=== PATIENT | male | born 1955 | race Caucasian/White ===

== ENCOUNTER 2018-03-27 19:28 | Inpatient (IN) | payer BC ==
[~2018-03-27] VITALS: Ht 172.7 cm; Wt 102.0 kg
[~2018-03-27 19:28] MED LIST: ALBU1AER9 INH; ASPI-320 PO; BIOTCAP2 PO; CHOL100010 PO; CLOP1TAB5 PO; CYAN500T PO; FLNIN/ NAE; GLUCTAB7 PO; LSN5 PO; LUTE6TAB PO; METO-452 PO; NTRSLP4 SL; OMEG10007 PO; VITATAB19 PO
[2018-03-27] MEDS ORDERED: SODIUM CHLORIDE 0.9% 1000ML 500 ML IV STA (19:44)
[2018-03-27] MEDS ORDERED: KETOROLAC TROMETHAMINE 30 MG/ML VIAL IV STA (19:44)
[2018-03-27] MEDS ORDERED: ONDANSETRON INJ 2 MG/ML 2 ML VIAL IV STA ×2 (19:44→21:15)
[2018-03-27] MEDS: MoRPHine SULFATE 4 MG/ML 1 ML CARP\\VIAL IV PRN ×3 (19:50→21:13)
[2018-03-27 19:55] LABS: BASO % 0.9 %; BASO ABS # 0.07 K/uL (0-0.2); EOS % 3.9 %; EOS ABS # 0.31 K/uL (0-0.5); HEMATOCRIT 42.8 % (42-52); HEMOGLOBIN 15.4 g/dL (14.0-18.0); IG# 0.02 K/uL (0.00-0.02); LYMPH % 34.9 %; LYMPH ABS # 2.81 K/uL (1.2-3.4); MEAN CELL VOLUME 83.4 fL (80-100); MEAN PLATELET VOLUME 10.1 fL (7.4-10.4); MONO % 7.7 %; MONO ABS # 0.62 K/uL (0.11-0.59); NEUT % 52.4 %; NEUT ABS # 4.22 K/uL (1.4-6.5); PLATELET COUNT 177 K/uL (130-400); RED CELL DISTRIBUTION WIDTH CV 13.3 % (11.5-14.5); RED CELL DISTRIBUTION WIDTH SD 40.3 fL (36.4-46.3); WHITE BLOOD COUNT 8.05 K/uL (4.8-10.8)
[2018-03-27] MEDS ORDERED: MoRPHine SULFATE 4 MG/ML 1 ML CARP\\VIAL IV STA (20:05)
--- NOTE | 2018-03-27 20:17 | DIAGNOSTIC IMAGING REPORT ---
CHEST ONE VIEW PORTABLE CLINICAL HISTORY: 63 years-old Male presenting with ABDOMINAL PAIN/GI. TECHNIQUE: Portable upright AP view of the chest was obtained. COMPARISON: 12/12/2015. FINDINGS: Cardiomediastinal silhouette normal. Mildly low lung volumes with hypoventilatory changes. No focal opacity. No large effusion or pneumothorax. Degenerative changes of the left glenohumeral joint. Chronic acromioclavicular separation on the left. Upper abdomen normal. IMPRESSION: 1. No acute cardiopulmonary disease. Electronically signed by: Julio Cesar Head M.D. 03/27/2018 8:15 PM Dictated Date/Time: 03/27/2018 8:15 PM
[2018-03-27 20:29] LABS: ALBUMIN 3.5 gm/dl (3.4-5.0); ALT/SGPT 29 U/L (12-78); AST/SGOT 13 U/L (15-37); BLOOD UREA NITROGEN 19 mg/dl (7-18); CALCIUM 9.1 mg/dl (8.5-10.1); CARBON DIOXIDE 24 mmol/L (21-32); CREATININE 0.99 mg/dl (0.60-1.40); GLUCOSE 167 mg/dl (70-99); LIPASE 223 U/L (73-393); POTASSIUM 3.4 mmol/L (3.5-5.1); SODIUM 135 mmol/L (136-145)
[2018-03-27 20:34] LABS: ALKALINE PHOSPHATASE 77 U/L (45-117)
[2018-03-27] MEDS ORDERED: TPRSR/50 PO (20:37)
[2018-03-27] MEDS ORDERED: ASPI81TA28 PO (20:37)
[2018-03-27] MEDS ORDERED: PROAIR INH (20:37)
[2018-03-27] MEDS ORDERED: CHOL20009 PO (20:37)
[2018-03-27] MEDS ORDERED: EZET10TA66 PO (20:37)
[2018-03-27] MEDS ORDERED: LISI-729 PO (20:37)
[2018-03-27] MEDS ORDERED: NTRGSL/4 UT (20:38)
--- NOTE | 2018-03-27 21:01 | DIAGNOSTIC IMAGING REPORT ---
GALLBLADDER-ABD LIMITED CLINICAL HISTORY: 63 years-old Male presenting with ABDOMINAL PAIN/GI. TECHNIQUE: Real-time grayscale and limited color Doppler ultrasound imaging of the abdomen limited to the right upper quadrant was performed. COMPARISON: CT from 2010. FINDINGS: Pancreas: Largely obscured due to overlying bowel gas. Liver: Mildly hyperechogenic parenchyma, although the right hemidiaphragm remains visible, likely indicating mild steatosis. The liver measures 15.7 cm in maximal sagittal dimension. No sonographic evidence of hepatic mass. Main portal vein patent with normal directional flow. Biliary: No intrahepatic biliary ductal dilatation. Common bile duct measures up to 5 mm in diameter. Gallbladder: Gallstones in the gallbladder neck without evidence of gallbladder distention, wall thickening, or pericholecystic fluid or inflammatory change. Right kidney: Normal in appearance without evidence of hydronephrosis. Ascites: None. Other: None. IMPRESSION: 1. Cholelithiasis. No biliary ductal dilatation or evidence of cholecystitis. 2. Hepatic steatosis. Correlate with liver function tests to exclude steatohepatitis as a cause for abdominal pain. Electronically signed by: Julio Cesar Head M.D. 03/27/2018 9:00 PM Dictated Date/Time: 03/27/2018 8:58 PM
--- NOTE | 2018-03-27 21:20 | EMERGENCY ROOM VISIT NOTE ---
History Report prepared by Donnie: Junior Logan Under the Supervision of: Dr. Denny Grubbs M.D. First contact with patient: 19:43 Chief Complaint: ABDOMINAL PAIN Stated Complaint: SEVERE ABDOMINAL PAIN, NAUSEA History of Present Illness The patient is a 63 year old male who presents to the Emergency Room with complaints of constant RUQ abdominal pain beginning just 3 hours and 45 minutes ago. He currently rates his discomfort a 10/10 in severity. The patient states he is trying to lose weight and has been drinking protein shakes for meals. He reports he developed his abdominal pain, and he thought he needed to eat something. The patient notes he ate crackers, half of a hoagie, and potato chips. He states this made his symptoms worsen, and he developed nausea. The patient reports he forced himself to vomit, and it did not help his symptoms. He notes his discomfort stays in the right upper side of his abdomen; it does not radiate. The patient states his position does not affect his symptom intensity. He reports he still has his gallbladder. The patient denies having this pain before, burning with urination, fevers, and a history of abdominal surgeries. Source of History: patient Onset: 3hrs and 45mins Position: abdomen (RUQ) Symptom Intensity: 10/10 Timing: constant Modifying Factors (Worsening): eating Associated Symptoms: + nausea, + vomiting (self-induced), No fevers Note: Denies: burning with urination Review of Systems See HPI for pertinent positives & negatives. A total of 10 systems reviewed and were otherwise negative. Past Medical & Surgical Medical Problems: (1) Asthma (2) Hypertension Nos (3) Osteoarthritis (4) Status post non-ST elevation myocardial infarction (NSTEMI) (5) Symptomatic cholelithiasis Surgical Problems: (1) Cataract Nos (2) S/P ORIF left leg (3) S/P angioplasty with stent (4) S/P sinus surgery (5) S/P wrist surgery Family History Heart disease MOTHER (CABG in 60s ) BROTHER (CABG in 60s ) Hypertension MOTHER BROTHER Social History Smoking Status: Never Smoker Drug Use: none Marital Status: Housing Status: lives with significant other Occupation Status: employed Current/Historical Medications Scheduled Aspirin (Aspirin Ec), 81 MG PO ON HOLD Cholecalciferol (Vitamin D), 2,000 UNITS PO DAILY Ezetimibe (Ezetimibe), 10 MG PO DAILY Lisinopril (Zestril), 5 MG PO DAILY Lutein-Zeaxanthin (Lutein W/Zeaxanthin), 1 TAB PO DAILY Metoprolol Succinate (Metoprolol Succinate ER), 50 MG PO DAILY Nitroglycerin (Nitrostat), 0.4 MG UT PRN [Proair Hfa 108MCG], 1 PUFF INH PRN Allergies Coded Allergies: No Known Allergies (Unverified , 12/12/15) Physical Exam Vital Signs Date Time Temp Pulse Resp B/P (MAP) Pulse Ox O2 Delivery O2 Flow Rate FiO2 03/27/18 21:15 66 20 142/68 97 Room Air 03/27/18 19:33 36.4 79 18 154/73 97 Room Air Physical Exam GENERAL: Patient is in moderate acute distress secondary to pain. HEENT: No acute trauma, normocephalic atraumatic, mucous membranes moist, no nasal congestion, no scleral icterus. NECK: No stridor, no adenopathy, no meningismus, trachea is midline. LUNGS: Clear to auscultation bilaterally, no wheeze, no rhonchi, breath sounds equal. HEART: Without murmurs gallops or rubs, regular rate and rhythm. ABDOMEN: Soft, significant tenderness in the RUQ and epigastrium, bowel sounds positive, no hernias, no peritonitis. EXTREMITIES: No cyanosis or edema, boot on the left lower extremity, no signs for acute trauma. NEUROLOGIC: Oriented x 3, no acute motor or sensory deficits, no focal weakness. SKIN: No rash, no jaundice, no diaphoresis. Medical Decision & Procedures ER Provider Diagnostic Interpretation: Radiology results as stated below per my review and radiologist interpretation: GALLBLADDER-ABD LIMITED CLINICAL HISTORY: 63 years-old Male presenting with ABDOMINAL PAIN/GI. TECHNIQUE: Real-time grayscale and limited color Doppler ultrasound imaging of the abdomen limited to the right upper quadrant was performed. COMPARISON: CT from 2010. FINDINGS: Pancreas: Largely obscured due to overlying bowel gas. Liver: Mildly hyperechogenic parenchyma, although the right hemidiaphragm remains visible, likely indicating mild steatosis. The liver measures 15.7 cm in maximal sagittal dimension. No sonographic evidence of hepatic mass. Main portal vein patent with normal directional flow. Biliary: No intrahepatic biliary ductal dilatation. Common bile duct measures up to 5 mm in diameter. Gallbladder: Gallstones in the gallbladder neck without evidence of gallbladder distention, wall thickening, or pericholecystic fluid or inflammatory change. Right kidney: Normal in appearance without evidence of hydronephrosis. Ascites: None. Other: None. IMPRESSION: 1. Cholelithiasis. No biliary ductal dilatation or evidence of cholecystitis. 2. Hepatic steatosis. Correlate with liver function tests to exclude steatohepatitis as a cause for abdominal pain. Electronically signed by: Julio Cesar Head M.D. 03/27/2018 9:00 PM Dictated Date/Time: 03/27/2018 8:58 PM CHEST ONE VIEW PORTABLE CLINICAL HISTORY: 63 years-old Male presenting with ABDOMINAL PAIN/GI. TECHNIQUE: Portable upright AP view of the chest was obtained. COMPARISON: 12/12/2015. FINDINGS: Cardiomediastinal silhouette normal. Mildly low lung volumes with hypoventilatory changes. No focal opacity. No large effusion or pneumothorax. Degenerative changes of the left glenohumeral joint. Chronic acromioclavicular separation on the left. Upper abdomen normal. IMPRESSION: 1. No acute cardiopulmonary disease. Electronically signed by: Julio Cesar Head M.D. 03/27/2018 8:15 PM Dictated Date/Time: 03/27/2018 8:15 PM Laboratory Results 03/27/18 19:40 Red Blood Count 5.13, Mean Corpuscular Volume 83.4, Mean Corpuscular Hemoglobin 30.0, Mean Corpuscular Hemoglobin Concent 36.0, Mean Platelet Volume 10.1, Neutrophils (%) (Auto) 52.4, Lymphocytes (%) (Auto) 34.9, Monocytes (%) (Auto) 7.7, Eosinophils (%) (Auto) 3.9, Basophils (%) (Auto) 0.9, Neutrophils # (Auto) 4.22, Lymphocytes # (Auto) 2.81, Monocytes # (Auto) 0.62, Eosinophils # (Auto) 0.31, Basophils # (Auto) 0.07 03/27/18 19:40 Test 03/27/18 19:40 White Blood Count 8.05 K/uL (4.8-10.8) Red Blood Count 5.13 M/uL (4.7-6.1) Hemoglobin 15.4 g/dL (14.0-18.0) Hematocrit 42.8 % (42-52) Mean Corpuscular Volume 83.4 fL (80-100) Mean Corpuscular Hemoglobin 30.0 pg (25-34) Mean Corpuscular Hemoglobin Concent 36.0 g/dl (32-36) Platelet Count 177 K/uL (130-400) Mean Platelet Volume 10.1 fL (7.4-10.4) Neutrophils (%) (Auto) 52.4 % Lymphocytes (%) (Auto) 34.9 % Monocytes (%) (Auto) 7.7 % Eosinophils (%) (Auto) 3.9 % Basophils (%) (Auto) 0.9 % Neutrophils # (Auto) 4.22 K/uL (1.4-6.5) Lymphocytes # (Auto) 2.81 K/uL (1.2-3.4) Monocytes # (Auto) 0.62 K/uL (0.11-0.59) Eosinophils # (Auto) 0.31 K/uL (0-0.5) Basophils # (Auto) 0.07 K/uL (0-0.2) RDW Standard Deviation 40.3 fL (36.4-46.3) RDW Coefficient of Variation 13.3 % (11.5-14.5) Immature Granulocyte % (Auto) 0.2 % Immature Granulocyte # (Auto) 0.02 K/uL (0.00-0.02) Anion Gap 8.0 mmol/L (3-11) Est Creatinine Clear Calc Drug Dose 86.6 ml/min Estimated GFR () 92.9 Estimated GFR (Non- 80.2 BUN/Creatinine Ratio 19.5 (10-20) Calcium Level 9.1 mg/dl (8.5-10.1) Total Bilirubin 0.5 mg/dl (0.2-1) Aspartate Amino Transf (AST/SGOT) 13 U/L (15-37) Alanine Aminotransferase (ALT/SGPT) 29 U/L (12-78) Alkaline Phosphatase 77 U/L (45-117) Troponin I < 0.015 ng/ml (0-0.045) Total Protein 7.0 gm/dl (6.4-8.2) Albumin 3.5 gm/dl (3.4-5.0) Globulin 3.5 gm/dl (2.5-4.0) Albumin/Globulin Ratio 1.0 (0.9-2) Lipase 223 U/L (73-393) Laboratory results reviewed by me. Medications Administered Medications (Trade) Dose Ordered Sig/Adela Route Start Time Stop Time Status Last Admin Dose Admin Sodium Chloride 500 ml @ 999 mls/hr Q31M STAT IV 03/27/18 19:44 03/27/18 20:14 DC 03/27/18 19:44 999 MLS/HR Ondansetron HCl (Zofran Inj) 4 mg NOW STAT IV 03/27/18 19:44 03/27/18 19:47 DC 03/27/18 19:49 4 MG Morphine Sulfate (MoRPHine SULFATE INJ) 4 mg Q30M PRN IV 03/27/18 19:45 04/10/18 19:44 03/27/18 21:13 4 MG Ketorolac Tromethamine (Toradol Inj) 30 mg NOW STAT IV 03/27/18 19:44 03/27/18 19:47 DC 03/27/18 19:54 30 MG Ondansetron HCl (Zofran Inj) 4 mg NOW STAT IV 03/27/18 21:15 03/27/18 21:16 DC 03/27/18 21:17 4 MG ECG Per My Interpretation Indication: abdominal pain Rate (beats per minute): 62 Rhythm: normal sinus Findings: T-wave inversion (Inferior), no ectopy, other (No ST elevation. No PVCs.) Comparison ECG Date: 12/14/17 Change: no significant change ED Course 1940: The patient was evaluated in room C03. A complete history and physical exam was performed. 1943: Ordered Toradol 30mg IV, Zofran 4mg IV, Sodium Chloride 500 ml @ 999 mls/ hr IV 1944: Ordered Morphine Sulfate 4mg IV 2004: The nurse called, and the patient is requesting more pain medication. I will give him an additional 4mg or Morphine. 2105: I attempted to reevaluate the patient. He is still at his ultrasound. 2110: Upon reexamination the patient is resting. I discussed results and treatment plan with the patient. He verbalizes agreement and understanding. The patient will be evaluated for further management. 2114: Ordered Zofran 4mg IV 2116: I discussed the patient's case with Shubham Saucedo PA-C, General Surgery. The patient will be evaluated for further management and care. Medical Decision The patient is a 63 year old male who presents to the ED with complaints of constant RUQ abdominal pain. Differential diagnoses considered include renal colic, biliary colic, UTI, pancreatitis, UTI, bowel rupture, ulcer, appendicitis , diverticulitis, cholecystitis. There is no leukocytosis or concerning anemia. No significant electrolyte abnormality, kidney failure, hepatitis or pancreatitis. Chest film does not show pneumonia, free air or pneumothorax. Gallbladder ultrasound does show gallstones, no evidence for acute cholecystitis. EKG shows a normal sinus rhythm without any acute ischemic change. Cardiac enzyme testing 1 is not consistent with acute cardiac injury. Patient received IV saline, he received IV morphine, IV Toradol, IV Zofran. He received additional IV morphine and IV Zofran for symptom control. 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 I talked with the on-call surgeons who saw the patient here. The patient will be hospitalized. I did speak with case management. The patient is aware of all his findings. I do think his symptoms are from biliary colic. Medication Reconcilliation Current Medication List: was personally reviewed by me Blood Pressure Screening Patient's blood pressure: Elevated blood pressure Blood pressure disposition: Elevated BP felt to be situational Consults Time Called: 2113 Consulting Physician: Shubham Saucedo PA-C, General Surgery Returned Call: 2116 I discussed the patient's case with Shubham Saucedo PA-C, General Surgery. The patient will be evaluated for further management and care. Impression Primary Impression: RUQ abdominal pain Additional Impression: Biliary colic Scribe Attestation The scribe's documentation has been prepared under my direction and personally reviewed by me in its entirety. I confirm that the note above accurately reflects all work, treatment, procedures, and medical decision making performed by me. Departure Information Dispostion Being Evaluated By Surgeon Referrals Alicia Banerjee DO (PCP) Patient Instructions My [facility] Problem Qualifiers
--- NOTE | 2018-03-27 22:09 | Surgery Consultation ---
Consultation Date of Consultation: March 27, 2018. Attending Physician: Reason for Consultation: cholelithiasis History of Present Illness Patient is a 63M w/ PMHx [place] w/ angioplasty and stent x4 who presents to the ED this evening with right sided abdominal pain beginning around 1600 today. Reports he had a protein shake and some cheese and his pain came on afterwards along with some nausea. He forced himself to vomit once to try and relieve the pain but it didnt help. denies hematemesis. Denies any symptoms like this in the past. Denies fever/chills/recent illness. he is moving his bowels and urinating without issue. FHx positive for gallbladder disease (mother, sister). Denies use of blood thinning or anticoagulant medications. Denies previous history of abdominal surgeries. He is currently a few months out from an ankle replacement he had done in December 2017, no complications. He does follow with dr. nickerson with [facility] for his cardiac history, last seen in August 2017. Currently he still has a dull ache in his right side despite analgesics in the ED. WBC and LFT wnl. RUQ U/S shows cholelithiasis with a stone at the gallbladder neck, no evidence of acute cholecystitis. Past Medical/Surgical History Medical Problems: (1) Acute coronary syndrome Status: Acute (2) Biliary colic Status: Acute (3) Chest pain Status: Acute (4) RUQ abdominal pain Status: Acute Family History Heart disease MOTHER (CABG in 60s ) BROTHER (CABG in 60s ) Hypertension MOTHER BROTHER Social History Smoking Status: Never Smoker Drug Use: none Marital Status: Housing Status: lives with significant other Occupation Status: employed Allergies Coded Allergies: No Known Allergies (Unverified , 12/12/15) Home Medications Scheduled Aspirin (Aspirin Ec), 81 MG PO ON HOLD Cholecalciferol (Vitamin D), 2,000 UNITS PO DAILY Ezetimibe (Ezetimibe), 10 MG PO DAILY Lisinopril (Zestril), 5 MG PO DAILY Lutein-Zeaxanthin (Lutein W/Zeaxanthin), 1 TAB PO DAILY Metoprolol Succinate (Metoprolol Succinate ER), 50 MG PO DAILY Nitroglycerin (Nitrostat), 0.4 MG UT PRN [Proair Hfa 108MCG], 1 PUFF INH PRN Current Inpatient Medications Current Inpatient Medications Medications (Trade) Dose Ordered Sig/Adela Route Start Time Stop Time Status Last Admin Dose Admin Morphine Sulfate (MoRPHine SULFATE INJ) 4 mg Q30M PRN IV 03/27/18 19:45 04/10/18 19:44 03/27/18 21:13 4 MG Review of Systems Constitutional: No fever, No chills Respiratory: No shortness of breath Cardiovascular: No chest pain Abdomen: + pain (RUQ), + nausea, + vomiting, No diarrhea, No constipation Genitourinary - Male: No dysuria Integumentary: No new/changing skin lesions, No color change Physical Exam Date Time Temp Pulse Resp B/P (MAP) Pulse Ox O2 Delivery O2 Flow Rate FiO2 03/27/18 21:15 66 20 142/68 97 Room Air 03/27/18 19:33 36.4 79 18 154/73 97 Room Air General Appearance: WD/WN, no apparent distress Head: normocephalic, atraumatic ENT: hearing grossly normal Respiratory/Chest: lungs clear, no respiratory distress, no accessory muscle use Cardiovascular: regular rate, rhythm, no gallop, no murmur Abdomen/GI: soft, no organomegaly, no pulsatile mass, + tenderness (Right abdominal tenderness, RUQ) Neurologic/Psych: alert, normal mood/affect, oriented x 3 Skin: normal color, warm/dry Laboratory Results Last 24 Hours Test 03/27/18 19:40 White Blood Count 8.05 K/uL Red Blood Count 5.13 M/uL Hemoglobin 15.4 g/dL Hematocrit 42.8 % Mean Corpuscular Volume 83.4 fL Mean Corpuscular Hemoglobin 30.0 pg Mean Corpuscular Hemoglobin Concent 36.0 g/dl Platelet Count 177 K/uL Mean Platelet Volume 10.1 fL Neutrophils (%) (Auto) 52.4 % Lymphocytes (%) (Auto) 34.9 % Monocytes (%) (Auto) 7.7 % Eosinophils (%) (Auto) 3.9 % Basophils (%) (Auto) 0.9 % Neutrophils # (Auto) 4.22 K/uL Lymphocytes # (Auto) 2.81 K/uL Monocytes # (Auto) 0.62 K/uL Eosinophils # (Auto) 0.31 K/uL Basophils # (Auto) 0.07 K/uL RDW Standard Deviation 40.3 fL RDW Coefficient of Variation 13.3 % Immature Granulocyte % (Auto) 0.2 % Immature Granulocyte # (Auto) 0.02 K/uL Sodium Level 135 mmol/L Potassium Level 3.4 mmol/L Chloride Level 103 mmol/L Carbon Dioxide Level 24 mmol/L Anion Gap 8.0 mmol/L Blood Urea Nitrogen 19 mg/dl Creatinine 0.99 mg/dl Est Creatinine Clear Calc Drug Dose 86.6 ml/min Estimated GFR () 92.9 Estimated GFR (Non- 80.2 BUN/Creatinine Ratio 19.5 Random Glucose 167 mg/dl Calcium Level 9.1 mg/dl Total Bilirubin 0.5 mg/dl Aspartate Amino Transf (AST/SGOT) 13 U/L Alanine Aminotransferase (ALT/SGPT) 29 U/L Alkaline Phosphatase 77 U/L Troponin I < 0.015 ng/ml Total Protein 7.0 gm/dl Albumin 3.5 gm/dl Globulin 3.5 gm/dl Albumin/Globulin Ratio 1.0 Lipase 223 U/L Assessment & Plan Symptomatic cholelithiasis Abdomen soft, non-distended. Still some mild right sided tenderness despite IV analgesics. Plan for laparoscopic cholecystectomy, possible open with Dr. Meza in the OR tomorrow. Risks, benefits, alternatives to the procedure were discussed - questions answered. Admit med/surg, NPO after midnight, IV fluids, IV mefoxin 2g Q6H, pain medication prn, anti-emetics PRN, SCDs. Will consult medicine for pre-op risk assessment given cardiac history. Or Notified. Findings discussed with Dr. Meza. Please contact with questions or concerns.
[2018-03-27] MEDS ORDERED: SODIUM CHLORIDE 0.9% 1000ML 1,000 ML IV SCH (22:15)
[2018-03-27] MEDS ORDERED: ONDANSETRON INJ 2 MG/ML 2 ML VIAL IV PRN (22:15)
[2018-03-27] MEDS ORDERED: HYDROmorphone INJ 2 MG/ML SYR/VIAL IV PRN (22:15)
[2018-03-27] MEDS ORDERED: HYDROmorphone INJ 0.5 MG/0.5 ML SYR IV PRN (22:15)
[2018-03-27] MEDS ORDERED: PROMETHAZINE HCL INJ 25 MG in SODIUM CHLORIDE 0.9% 50ML 50 ML IV PRN (22:30)
[2018-03-27] MEDS ORDERED: POTASSIUM CHLORIDE 10 MEQ TABCR PO STA (22:59)
[2018-03-27 23:26] VITALS: BP 128/87; PULSE 91; TEMP 36.4; O2SAT 95
[2018-03-27 23:30] VITALS: BP 128/87; PULSE 91; TEMP 36.4; Ht 172.7 cm; Wt 102.0 kg
[2018-03-27] MEDS ORDERED: PROMETHAZINE HCL INJ 12.5 MG in SODIUM CHLORIDE 0.9% 50ML 50 ML IV PRN (23:45)
[2018-03-28] VITALS (10 sets, daily range): BP systolic 120–164; BP diastolic 68–86; PULSE 66–80; TEMP 36.4–37; O2SAT 93–98
[2018-03-28] MEDS: NSS + 20MEQ KCL 1000ML 1,000 ML IV SCH ×2 (00:19→15:38)
[2018-03-28] MEDS: ACETAMINOPHEN IV 1,000 MG in EMPTY BAG 0 ML IV SCH ×4 (00:19→23:30)
[2018-03-28] MEDS: CEFOXITIN IV 2,000 MG in DEXTROSE 5% 50ML 50 ML IV SCH ×5 (00:33→23:29)
--- NOTE | 2018-03-28 06:17 | Surgery Progress Note ---
Surgery Progress Note Date of Service March 28, 2018. Subjective vs stable Objective Vital Signs: Date Time Temp Pulse Resp B/P (MAP) Pulse Ox O2 Delivery O2 Flow Rate FiO2 03/27/18 23:30 Room Air 03/27/18 23:30 36.4 91 17 128/87 Room Air 03/27/18 23:26 36.4 91 17 128/87 (101) 95 Room Air 03/27/18 22:48 65 20 142/65 93 Room Air 03/27/18 21:15 66 20 142/68 97 Room Air 03/27/18 19:33 36.4 79 18 154/73 97 Room Air General Appearance: no apparent distress Respiratory/Chest: no respiratory distress Abdomen: soft Laboratory Results: Results Past 24 Hours Test 03/27/18 19:40 03/28/18 02:30 Range/Units White Blood Count 8.05 4.8-10.8 K/uL Red Blood Count 5.13 4.7-6.1 M/uL Hemoglobin 15.4 14.0-18.0 g/dL Hematocrit 42.8 42-52 % Mean Corpuscular Volume 83.4 80-100 fL Mean Corpuscular Hemoglobin 30.0 25-34 pg Mean Corpuscular Hemoglobin Concent 36.0 32-36 g/dl Platelet Count 177 130-400 K/uL Mean Platelet Volume 10.1 7.4-10.4 fL Neutrophils (%) (Auto) 52.4 % Lymphocytes (%) (Auto) 34.9 % Monocytes (%) (Auto) 7.7 % Eosinophils (%) (Auto) 3.9 % Basophils (%) (Auto) 0.9 % Neutrophils # (Auto) 4.22 1.4-6.5 K/uL Lymphocytes # (Auto) 2.81 1.2-3.4 K/uL Monocytes # (Auto) 0.62 0.11-0.59 K/uL Eosinophils # (Auto) 0.31 0-0.5 K/uL Basophils # (Auto) 0.07 0-0.2 K/uL RDW Standard Deviation 40.3 36.4-46.3 fL RDW Coefficient of Variation 13.3 11.5-14.5 % Immature Granulocyte % (Auto) 0.2 % Immature Granulocyte # (Auto) 0.02 0.00-0.02 K/uL Sodium Level 135 136-145 mmol/L Potassium Level 3.4 3.5-5.1 mmol/L Chloride Level 103 98-107 mmol/L Carbon Dioxide Level 24 21-32 mmol/L Anion Gap 8.0 3-11 mmol/L Blood Urea Nitrogen 19 7-18 mg/dl Creatinine 0.99 0.60-1.40 mg/dl Est Creatinine Clear Calc Drug Dose 86.6 ml/min Estimated GFR () 92.9 Estimated GFR (Non- 80.2 BUN/Creatinine Ratio 19.5 10-20 Random Glucose 167 70-99 mg/dl Calcium Level 9.1 8.5-10.1 mg/dl Magnesium Level 1.9 1.8-2.4 mg/dl Total Bilirubin 0.5 0.2-1 mg/dl Aspartate Amino Transf (AST/SGOT) 13 15-37 U/L Alanine Aminotransferase (ALT/SGPT) 29 12-78 U/L Alkaline Phosphatase 77 45-117 U/L Troponin I < 0.015 0-0.045 ng/ml Total Protein 7.0 6.4-8.2 gm/dl Albumin 3.5 3.4-5.0 gm/dl Globulin 3.5 2.5-4.0 gm/dl Albumin/Globulin Ratio 1.0 0.9-2 Lipase 223 73-393 U/L Urine Color YELLOW Urine Appearance CLEAR CLEAR Urine pH 5.0 4.5-7.5 Urine Specific Spencer 1.029 1.000-1.030 Urine Protein NEG NEG Urine Glucose (UA) NEG NEG Urine Ketones NEG NEG Urine Occult Blood NEG NEG Urine Nitrite NEG NEG Urine Bilirubin NEG NEG Urine Urobilinogen NEG NEG Urine Leukocyte Esterase NEG NEG Assessment & Plan 03/28/18- for jada omero today- probable d/c tomorrow Dr Majano covering over weekend
[2018-03-28] MEDS ORDERED: HYDR-5688 PO ×2 (06:18→06:24)
--- NOTE | 2018-03-28 06:20 | Discharge Instructions ---
Discharge Instructions Date of Service March 28, 2018. Admission Reason for Admission: Symptomatic Cholelithiasis Discharge Discharge Diagnosis / Problem: acute cholecystitis Discharge Goals Goal(s): Decrease discomfort, Improve function, Improve disease control Activity Recommendations Activity Limitations: as noted below Lifting Limitations: no more than 25 pounds (for 3 weeks) Exercise/Sports Limitations: until after follow-up appointment May Resume Sexual Activity: when tolerated Shower/Bathe: tomorrow Driving or Machine Use: resume 3 days after discharge . Instructions / Follow-Up Instructions / Follow-Up SPECIAL CARE INSTRUCTIONS: * Cover incisions and change daily for comfort/drainage. * Empty drain 2-3 times per day and record. * May use ibuprofen for pain as tolerated. * Expect some swelling and bruising. Call your doctor if: * Temperature above 101 degrees * Pain not relieved by pain medicine ordered * There is increased drainage or redness from any incision * You have any unanswered questions or concerns [phone]. FOLLOW UP VISIT: If not already scheduled, please call the office for a follow-up visit. for next Sat- suture removal OFFICE PHONE NUMBER: Dr. Meza Office Current Hospital Diet Patient's current hospital diet: Clear Liquid Diet Discharge Diet Recommended Diet: Regular Diet Pending Studies Studies pending at discharge: no Laboratory Results Hemoglobin A1c Test 03/27/18 19:40 Range/Units Medical Emergencies . Who to Call and When: Medical Emergencies: If at any time you feel your situation is an emergency, please call 911 immediately. . Non-Emergent Contact Non-Emergency issues call your: Primary Care Provider, Surgeon . "Provider Documentation" section prepared by Kit Meza. .
[2018-03-28 06:28] LABS: HEMOGLOBIN A1C 5.3 % (4.5-5.6)
[2018-03-28] MEDS ORDERED: DEXAMETHASONE SOD INJ 4 MG/ML VIAL ONE (06:50)
[2018-03-28] MEDS ORDERED: PROPOFOL IV EMULSION 10 MG/ML 20 ML VIAL ONE (06:50)
[2018-03-28] MEDS ORDERED: ROCURONIUM BROMIDE 10 MG/ML 5 ML VIAL ONE (06:50)
[2018-03-28] MEDS ORDERED: GLYCOPYRROLATE INJ 0.2 MG/ML VIAL ONE (06:50)
[2018-03-28] MEDS ORDERED: NEOSTIGMINE METHYLSULFATE 5 MG/5 ML SYR ONE (06:50)
[2018-03-28] MEDS ORDERED: ONDANSETRON INJ 2 MG/ML 2 ML VIAL ONE (06:50)
[2018-03-28] MEDS ORDERED: LIDOCAINE HCL 2% 2 ML VIAL (20MG/ML) ONE (06:50)
[2018-03-28] MEDS ORDERED: FENTANYL CITRATE INJ 50 MCG/1 ML 2 ML VIAL ONE (06:51)
[2018-03-28] MEDS ORDERED: MIDAZOLAM HCL 1 MG/ML 2ML VIAL ONE (06:51)
[2018-03-28] MEDS ORDERED: BUPIVACAINE 0.5 % 5 MG/1 ML MPF 30ML VIAL ONE (07:11)
[2018-03-28] MEDS ORDERED: ONDANSETRON INJ 2 MG/ML 2 ML VIAL IV PRN (07:15)
[2018-03-28] MEDS ORDERED: FENTANYL CITRATE INJ 50 MCG/1 ML 2 ML VIAL IV PRN (07:15)
[2018-03-28] MEDS ORDERED: EpHEDrine SULFATE INJ 50 MG/ML AMP IV PRN (07:15)
[2018-03-28] MEDS ORDERED: ATROPINE SULFATE 0.1 MG/ML 5ML SYR IV PRN (07:15)
[2018-03-28] MEDS ORDERED: EpHEDrine SULFATE INJ 50 MG/ML AMP ONE (07:55)
--- NOTE | 2018-03-28 08:39 | [facility] Operative Report ---
Operative Report Operative Date March 28, 2018. Pre-Operative Diagnosis Cholelithiasis acute cholecystitis Post-Operative Diagnosis same with chronic cholecystitis, adhesions Procedure(s) Performed lap omero Surgeon Dr. Meza Music Sound Light Technician Surgeon(s) Damir Ro PA-C Estimated Blood Loss 20cc Findings single stone in neck, chronic adhesions from chronic cholecystitis Specimens A) Gallbladder Drains None Anesthesia Type General Complication(s) none Disposition Recovery Room / PACU I attest to the content of the Intraoperative Record and any orders documented therein. Any exceptions are noted below.
[2018-03-28] MEDS ORDERED: ESMOLOL HCL 10 MG/ML 10 ML VIAL ONE (08:49)
[2018-03-28] MEDS ORDERED: HYDROCODONE/ACETAMIN 5/325MG TAB PO PRN ×2 (09:00)
--- NOTE | 2018-03-28 09:23 | Anesthesiology Progress Note ---
Anesthesia Post Op Note Date & Time March 28, 2018 at 09:23 Vital Signs Pain Intensity: 0 Vital Signs Past 12 Hours Date Time Temp Pulse Resp B/P (MAP) Pulse Ox O2 Delivery O2 Flow Rate FiO2 03/28/18 09:20 71 18 123/60 97 Nasal Cannula 3 03/28/18 09:10 74 14 133/72 96 Nasal Cannula 3 03/28/18 09:00 66 14 122/72 96 Oxymask 10 03/28/18 08:54 36.2 71 18 126/73 93 Oxymask 10 03/28/18 06:38 36.5 66 16 130/80 (97) 98 Room Air 03/27/18 23:30 Room Air 03/27/18 23:30 36.4 91 17 128/87 Room Air 03/27/18 23:26 36.4 91 17 128/87 (101) 95 Room Air 03/27/18 22:48 65 20 142/65 93 Room Air Notes Mental Status: alert / awake / arousable, participated in evaluation Pt Amnestic to Procedure: Yes Nausea / Vomiting: adequately controlled Pain: adequately controlled Airway Patency, RR, SpO2: stable & adequate BP & HR: stable & adequate Hydration State: stable & adequate Anesthetic Complications: no major complications apparent
--- NOTE | 2018-03-28 10:03 | INTERNAL MEDICINE CONSULTATION ---
DATE OF ENCOUNTER: 03/28/2018 PRIMARY CARE DOCTOR: Alicia Banerjee DO The patient is seen at the request of Dr. Meza/Mr. Shubham Saucedo PA-C for preop eval. Medical history is significant for CAD, status post stenting, hypertension, hyperlipidemia, statin intolerance, past tobacco abuse, asthma. Recent confinement last November 2015 for unstable angina status post stent placement. Yesterday, patient was having protein shake and cheese when he developed achy right upper quadrant pain with some nausea, emesis, chills. Patient brought to the Emergency Room. Gallbladder ultrasound showed cholelithiasis. Patient currently admitted Surgery service for symptomatic cholelithiasis. Surgery contemplated today. Medical history as above. Normal dobutamine stress echo outpatient 11/2017 in preparation for recent left ankle surgery done at [facility] last 12/2017. Home Aspirin held pending orthopedic surgeon re-eval next month. SURGERIES: Orthopedic procedures, sinus surgery, wrist surgery, cataract surgery. HOME MEDICATIONS: Include metoprolol, Nitrostat, ProAir, vitamin D, lutein, Zestril. ALLERGIES: No drug allergies. FAMILY HISTORY: There is a family history of heart disease. 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 All 10 systems reviewed. All other ROS negative. PHYSICAL EXAMINATION: VITAL SIGNS: Blood pressure was noted to be 128/80, pulse 90 RR 18 T 37 O2 sats 95 on room air. GENERAL: Noted to be pleasant, no distress, obese. SKIN: Normal color, warm. HEENT: [place] palpebral conjunctivae, no ptosis. Dry mucosa. NECK: Short, nontender. CHEST: Clear to auscultation. HEART: Regular rate and rhythm, no murmur. ABDOMEN: Some distention and non-tender. EXTREMITIES: No edema. No tenderness. No gross deformity. NEUROLOGIC: Coherent, no gross focality. LABS: Hemoglobin noted to be 15.4, white cells 8, platelets note to be 177. Sodium 135, potassium 3.4, chloride 103, CO2 24, creatinine 0.9, glucose 167. LFTs, lipase normal, troponin negative Gallbladder US cholelithiasis, hepatic steatosis. Chest x-ray, no acute cardiopulmonary disease. EKG as per my interpretation, rate 65, normal sinus rhythm, T-wave inversions in inferior leads. ASSESSMENT: 1. Biliary colic. No sepsis. 2. Hypertension, stable. 3. Coronary artery disease status post stenting. Stable CAD no inducible ischemia on recent outpatient stress test 11/2017 prior to orthopedic procedure 12/2017 home ASA on hold since left lower extremity orthopedic procedure. 4. Hyponatremia, hypokalemia to secondary to emesis 5. Hyperglycemia rule out DM. 6. bronchial asthma, stable disease. RECOMMENDATIONS: No medical contraindication for contemplated surgical procedure. (Low moderate risk for cardiac complications for contemplated moderate risk surgical procedure as per RCRI.) Replace potassium, check magnesium. IVF Continue home beta awais, ACEI. Check hemoglobin A1c DVT prophylaxis, SCDs as per surgery admission orders. Thank you very much for this consultation. Dr. Nesbitt will follow the patient's progress. ANDREW
[2018-03-28] MEDS: EZETIMIBE 10MG TAB PO SCH (10:57)
[2018-03-28] MEDS: LISINOPRIL 5 MG TAB PO SCH (10:57)
[2018-03-28] MEDS: METOPROLOL SUCC 50MG EXT REL TAB PO SCH (10:58)
--- NOTE | 2018-03-28 11:07 | OPERATIVE REPORT ---
DATE OF OPERATION: 03/28/2018 NAME OF OPERATION: Laparoscopic cholecystectomy. STAFF SURGEON: Dr. Meza. SURGEON/PRESIDENT: Damir Ro PA-C. ANESTHESIA: General. FINDINGS: The patient had a relatively severe [id number] cholecystitis with severe adhesions at the jessica hepatis consistent with chronic cholecystitis. PROCEDURE: The patient was brought in the operating room and placed on the operating table in supine position. His abdomen was prepped and draped in usual fashion. Pneumatic stockings, orogastric tube were placed. Incision was made above the umbilicus, carrying dissection down through significant adipose tissue from his obesity. Eventually we were able to place a Veress needle producing pneumoperitoneum. An 11 mm port was placed at this level and then under visualization, three 5 mm ports were placed, 1 cephalad and 2 laterally. Gallbladder was thickened and inflamed. There was some hemorrhagic inflammation consistent with acute cholecystitis. There were adhesions to the gallbladder consistent with chronic cholecystitis. These were taken down. The jessica hepatis was identified. The cystic duct was identified and then clipped and transected. The cystic artery identified, clipped and transected and the gallbladder dissected away from the liver bed. There was acute edema in the gallbladder wall. The gallbladder was placed in an Endobag. After appropriate hemostasis, the Endobag was removed through the umbilical site. I did have to enlarge the fascial defect because of the stone within the gallbladder which was a single stone obstructing the cystic duct. The fascia at the umbilicus closed using interrupted 0 PDS suture and then the skin reapproximated using 4-0 nylon suture. The patient was transferred to recovery room in stable condition. I attest to the content of the Intraoperative Record and any orders documented therein. Any exception s are noted below.
[2018-03-28] MEDS ORDERED: COUGH DROP (SUGAR FREE) LOZ 24 LOZ/1 BOX LOZ PRN (16:00)
[2018-03-28] MEDS ORDERED: NURSING DECISION MEDICATION ORDER SCH ×2 (16:00→23:30)
--- NOTE | 2018-03-28 18:04 | Progress Note ---
Medicine Progress Note Date & Time of Visit: March 28, 2018 at 17:55. Subjective Seen resting in bed, comfortable, using his cell phone Alert, in good spirits States he feels fine overall Minimal discomfort on the surgical sites No nausea Tolerating regular diet well No chest pain, dyspnea, dizziness No other symptoms Objective Last 8 Hrs Date Time Temp Pulse Resp B/P (MAP) Pulse Ox O2 Delivery O2 Flow Rate FiO2 03/28/18 15:30 Room Air 03/28/18 15:30 136/86 (103) 03/28/18 15:02 36.7 78 18 164/82 (109) 94 Room Air 03/28/18 12:47 36.4 80 19 138/83 (101) 93 Room Air 03/28/18 12:05 36.4 72 18 145/82 (103) 94 Room Air 03/28/18 11:21 36.4 71 19 120/74 (89) 94 Room Air 03/28/18 10:39 36.4 70 16 136/85 (102) 96 Nasal Cannula 2.0 03/28/18 10:00 36.4 69 16 125/78 (94) 95 Room Air 03/28/18 10:00 Room Air 03/28/18 10:00 95 Room Air Physical Exam: General- oriented x 3, not in distress, speaks in sentences, no accessory muscle use risk injury failure loss Head- atraumatic Eyes- PERRL, EOMI, anicteric ENT- oropharynx clear Neck- supple, no JVD, no adenopathy, no thyromegaly Lungs- clear to auscultation bilaterally Heart- regular rhythm; no murmur, no gallop, normal rate Abdomen- normal bowel sounds, soft, nontender, nondistended Dressings in place over the laparoscopic cholecystectomy sites; no bleeding no discharge Extremities- no pretibial edema, no calf tenderness; peripheral pulses intact Neuro- alert, oriented x 3; no gross focal deficits Skin- warm & dry Laboratory Results: Last 24 Hours Test 03/27/18 19:40 03/28/18 02:30 White Blood Count 8.05 K/uL Red Blood Count 5.13 M/uL Hemoglobin 15.4 g/dL Hematocrit 42.8 % Mean Corpuscular Volume 83.4 fL Mean Corpuscular Hemoglobin 30.0 pg Mean Corpuscular Hemoglobin Concent 36.0 g/dl Platelet Count 177 K/uL Mean Platelet Volume 10.1 fL Neutrophils (%) (Auto) 52.4 % Lymphocytes (%) (Auto) 34.9 % Monocytes (%) (Auto) 7.7 % Eosinophils (%) (Auto) 3.9 % Basophils (%) (Auto) 0.9 % Neutrophils # (Auto) 4.22 K/uL Lymphocytes # (Auto) 2.81 K/uL Monocytes # (Auto) 0.62 K/uL Eosinophils # (Auto) 0.31 K/uL Basophils # (Auto) 0.07 K/uL RDW Standard Deviation 40.3 fL RDW Coefficient of Variation 13.3 % Immature Granulocyte % (Auto) 0.2 % Immature Granulocyte # (Auto) 0.02 K/uL Sodium Level 135 mmol/L Potassium Level 3.4 mmol/L Chloride Level 103 mmol/L Carbon Dioxide Level 24 mmol/L Anion Gap 8.0 mmol/L Blood Urea Nitrogen 19 mg/dl Creatinine 0.99 mg/dl Est Creatinine Clear Calc Drug Dose 86.6 ml/min Estimated GFR () 92.9 Estimated GFR (Non- 80.2 BUN/Creatinine Ratio 19.5 Random Glucose 167 mg/dl Estimated Average Glucose 105 mg/dl Hemoglobin A1c 5.3 % Calcium Level 9.1 mg/dl Magnesium Level 1.9 mg/dl Total Bilirubin 0.5 mg/dl Aspartate Amino Transf (AST/SGOT) 13 U/L Alanine Aminotransferase (ALT/SGPT) 29 U/L Alkaline Phosphatase 77 U/L Troponin I < 0.015 ng/ml Total Protein 7.0 gm/dl Albumin 3.5 gm/dl Globulin 3.5 gm/dl Albumin/Globulin Ratio 1.0 Lipase 223 U/L Urine Color YELLOW Urine Appearance CLEAR Urine pH 5.0 Urine Specific [place] 1.029 Urine Protein NEG Urine Glucose (UA) NEG Urine Ketones NEG Urine Occult Blood NEG Urine Nitrite NEG Urine Bilirubin NEG Urine Urobilinogen NEG Urine Leukocyte Esterase NEG Assessment & Plan 1. Cholelithiasis Status post cholecystectomy laparoscopic approach Postop day #0 Patient doing well overall postsurgery Continue to monitor 2. Hypertension, stable. Continue lisinopril and metoprolol 3. Coronary artery disease status post stenting. Stable CAD no inducible ischemia on recent outpatient stress test 11/2017 prior to orthopedic procedure 12/2017 home ASA on hold since left lower extremity orthopedic procedure. Denies cardiac symptoms postop Continue to monitor 4. Hyponatremia, hypokalemia to secondary to emesis Potassium repleted Repeat PRP in the morning 5. Hyperglycemia rule out DM. A1c 5.3 Patient has no diabetes 6. bronchial asthma, stable disease. Thank you for this consultation. We will follow the patient with you during their hospital stay. You can reach a member [facility]/06 via pager @ . Current Inpatient Medications: Current Inpatient Medications Medications (Trade) Dose Ordered Sig/Adela Route Start Time Stop Time Status Last Admin Dose Admin Cefoxitin Sodium 2000 mg/Dextrose 60 ml @ 100 mls/hr Q6H IV 03/28/18 00:00 03/29/18 00:00 03/28/18 17:34 100 MLS/HR Ondansetron HCl (Zofran Inj) 4 mg Q6H PRN IV 03/27/18 22:15 04/26/18 22:14 Acetaminophen 1000 mg/Empty Bag 100 ml @ 400 mls/hr Q8H IV 03/28/18 00:00 04/27/18 00:00 03/28/18 15:38 400 MLS/HR Hydromorphone HCl (Dilaudid Inj) 0.5 mg Q3HWA PRN IV 03/27/18 22:15 04/10/18 22:14 Hydromorphone HCl (Dilaudid Inj) 1 mg Q3HWA PRN IV 03/27/18 22:15 04/10/18 22:14 Promethazine HCl 25 mg/Sodium Chloride 51 ml @ 204 mls/hr Q6H PRN IV 03/27/18 22:30 04/26/18 22:29 Potassium Chloride/Sodium Chloride 1,000 ml @ 75 mls/hr [id number] IV 03/27/18 23:59 04/26/18 23:58 03/28/18 15:38 75 MLS/HR EZETIMIBE (Zetia Tab) 10 mg DAILY PO 03/28/18 09:00 04/27/18 08:59 03/28/18 10:57 10 MG Lisinopril (Zestril Tab) 5 mg DAILY PO 03/28/18 09:00 04/27/18 08:59 03/28/18 10:57 5 MG Metoprolol Succinate (Toprol Xl Tab) 50 mg DAILY PO 03/28/18 09:00 04/27/18 08:59 03/28/18 10:58 50 MG Promethazine HCl 12.5 mg/Sodium Chloride 50.5 ml @ 202 mls/hr Q6H PRN IV 03/27/18 23:45 04/26/18 23:44 Acetaminophen/ Hydrocodone Bitart ([place] 5/325 Tab) 1 tab Q4 PRN PO 03/28/18 09:00 04/11/18 08:59 Future Hold Acetaminophen/ Hydrocodone Bitart ([place] 5/325 Tab) 2 tab Q4 PRN PO 03/28/18 09:00 04/11/18 08:59 Future Hold Menthol (Nice Ghanshyam) 1 ghanshyam PRN PRN GHANSHYAM 03/28/18 16:00 04/27/18 15:59 03/28/18 16:21 1 GHANSHYAM
[2018-03-28] MEDS ORDERED: ALUMINUM/MAGNESIUM SUSP 30 ML UDC PO STA (19:50)
[2018-03-29 03:23] VITALS: BP 124/71; PULSE 69; TEMP 36.6; O2SAT 95
[2018-03-29] MEDS ORDERED: PANTOprazole SOD 40 MG TAB PO ONE (05:02)
[2018-03-29 05:35] LABS: HEMATOCRIT 41.4 % (42-52); HEMOGLOBIN 14.1 g/dL (14.0-18.0); MEAN CELL VOLUME 85.4 fL (80-100); MEAN CORPUSCULAR HEMOGLOBIN 29.1 pg (25-34); MEAN CORPUSCULAR HGB CONC 34.1 g/dl (32-36); MEAN PLATELET VOLUME 9.9 fL (7.4-10.4); PLATELET COUNT 181 K/uL (130-400); RED CELL DISTRIBUTION WIDTH CV 13.7 % (11.5-14.5); RED CELL DISTRIBUTION WIDTH SD 42.4 fL (36.4-46.3); WHITE BLOOD COUNT 10.87 K/uL (4.8-10.8)
[2018-03-29 06:01] LABS: ALBUMIN 3.3 gm/dl (3.4-5.0); CALCIUM 8.5 mg/dl (8.5-10.1); CREATININE 0.97 mg/dl (0.60-1.40); POTASSIUM 4.2 mmol/L (3.5-5.1)
[2018-03-29 06:08] LABS: TOTAL PROTEIN 6.6 gm/dl (6.4-8.2)
[2018-03-29 07:19] VITALS: BP 145/86; PULSE 64; TEMP 36.5; O2SAT 96
[2018-03-29] MEDS: METOPROLOL SUCC 50MG EXT REL TAB PO SCH (08:32)
[2018-03-29] MEDS: EZETIMIBE 10MG TAB PO SCH (08:32)
[2018-03-29] MEDS: ACETAMINOPHEN IV 1,000 MG in EMPTY BAG 0 ML IV SCH (08:32)
[2018-03-29] MEDS: LISINOPRIL 5 MG TAB PO SCH (08:32)
--- NOTE | 2018-03-29 10:21 | Surgery Progress Note ---
Surgery Progress Note Date of Service March 29, 2018. Subjective Post OP Day: 1 + feeling well, + pain controlled, No complaints, No nausea, No vomiting Objective Vital Signs: Date Time Temp Pulse Resp B/P (MAP) Pulse Ox O2 Delivery O2 Flow Rate FiO2 03/29/18 07:47 Room Air 03/29/18 07:19 36.5 64 18 145/86 (105) 96 Room Air 03/29/18 03:23 36.6 69 16 124/71 (88) 95 Room Air 03/28/18 23:05 Room Air 03/28/18 22:55 37.0 67 18 136/68 (90) 96 Room Air 03/28/18 19:36 37.0 74 18 138/78 (98) 96 Room Air 03/28/18 15:30 Room Air 03/28/18 15:30 136/86 (103) 03/28/18 15:02 36.7 78 18 164/82 (109) 94 Room Air 03/28/18 12:47 36.4 80 19 138/83 (101) 93 Room Air 03/28/18 12:05 36.4 72 18 145/82 (103) 94 Room Air 03/28/18 11:21 36.4 71 19 120/74 (89) 94 Room Air 03/28/18 10:39 36.4 70 16 136/85 (102) 96 Nasal Cannula 2.0 General Appearance: WD/WN, no apparent distress Head: normocephalic, atraumatic Neck: supple Respiratory/Chest: normal breath sounds Cardiovascular: regular rate, rhythm Abdomen: non tender, non distended, soft Incision(s): clean, dry, intact Laboratory Results: Results Past 24 Hours Test 03/29/18 05:16 Range/Units White Blood Count 10.87 4.8-10.8 K/uL Red Blood Count 4.85 4.7-6.1 M/uL Hemoglobin 14.1 14.0-18.0 g/dL Hematocrit 41.4 42-52 % Mean Corpuscular Volume 85.4 80-100 fL Mean Corpuscular Hemoglobin 29.1 25-34 pg Mean Corpuscular Hemoglobin Concent 34.1 32-36 g/dl RDW Standard Deviation 42.4 36.4-46.3 fL RDW Coefficient of Variation 13.7 11.5-14.5 % Platelet Count 181 130-400 K/uL Mean Platelet Volume 9.9 7.4-10.4 fL Sodium Level 137 136-145 mmol/L Potassium Level 4.2 3.5-5.1 mmol/L Chloride Level 107 98-107 mmol/L Carbon Dioxide Level 25 21-32 mmol/L Anion Gap 5.0 3-11 mmol/L Blood Urea Nitrogen 11 7-18 mg/dl Creatinine 0.97 0.60-1.40 mg/dl Est Creatinine Clear Calc Drug Dose 89.0 ml/min Estimated GFR () 95.2 Estimated GFR (Non- 82.2 BUN/Creatinine Ratio 10.9 10-20 Random Glucose 122 70-99 mg/dl Calcium Level 8.5 8.5-10.1 mg/dl Total Bilirubin 0.6 0.2-1 mg/dl Direct Bilirubin 0.1 0-0.2 mg/dl Aspartate Amino Transf (AST/SGOT) 31 15-37 U/L Alanine Aminotransferase (ALT/SGPT) 50 12-78 U/L Alkaline Phosphatase 81 45-117 U/L Total Protein 6.6 6.4-8.2 gm/dl Albumin 3.3 3.4-5.0 gm/dl Globulin 3.3 2.5-4.0 gm/dl Albumin/Globulin Ratio 1.0 0.9-2 Assessment & Plan s/p lap omero. Doing well. Will discharge home today. postop instructions reviewed with pt.
[2018-03-29 11:31] VITALS: BP 145/86; PULSE 64; TEMP 36.5; O2SAT 96
[2018-03-30] MEDS ORDERED: PANTOprazole SOD 40 MG TAB PO SCH (09:00)
--- NOTE | 2018-04-01 14:08 | DISCHARGE SUMMARY ---
PRINCIPAL DIAGNOSIS: Acute cholecystitis. HISTORY OF PRESENT ILLNESS: The patient is a 63-year-old male who was admitted through the Emergency Room with acute cholecystitis. He was taken to the operating room on 03/28/2018 where he underwent laparoscopic cholecystectomy, which he tolerated very well. He had a relatively severe acute in chronic cholecystitis with adhesions. He did quite well and was felt stable for discharge home on 03/29/2018 to be followed in the surgical clinic within 1-2 weeks.
== END 2018-03-29 12:00 | disposition home or self-care (01) | DRG 418 ==
LOC: C.EDB 19:29 → C.3E 22:15 → ENRESERV 23:05
PROVIDERS: ADMIT Surgery; ATTEND Surgery
PROC: 0FT44ZZ Resection of Gallbladder, Percutaneous Endoscopic Approach (ICD-10-PCS; principal; 2018-03-28 07:30)
DX: K80.12 Calculus of gallbladder with acute and chronic cholecystitis without obstruction (principal); E87.1 Hypo-osmolality and hyponatremia; I10 Essential (primary) hypertension; J45.909 Unspecified asthma, uncomplicated; I25.2 Old myocardial infarction; M19.90 Unspecified osteoarthritis, unspecified site; Z95.5 Presence of coronary angioplasty implant and graft; I25.10 Atherosclerotic heart disease of native coronary artery without angina pectoris; E87.6 Hypokalemia; R73.9 Hyperglycemia, unspecified

== ENCOUNTER 2019-12-11 08:06 | Observation (INO) ==
--- NOTE | 2019-11-30 15:05 | PAT Medication Instructions ---
Medication Instructions Date of Service November 30, 2019 Home Medications albuterol sulfate [ProAir HFA] 1 puff INHALATION Q6H PRN aspirin [Aspirin Low Dose] 81 mg PO QAM cholecalciferol (vitamin D3) [Vitamin D3] 2,000 unit PO QAM cyanocobalamin (vitamin B-12) [Vitamin B-12] 5,000 mcg SUBLINGUAL QAM ezetimibe 10 mg PO QAM lisinopril 5 mg PO QAM lutein-zeaxanthin 2 cap PO QAM metoprolol succinate 50 mg PO QAM nitroglycerin 0.4 mg SUBLINGUAL DIRECTED PRN vitamin A 8,000 unit PO QAM vitamin E 800 unit PO QAM Continue as directed nitroglycerin 0.4 mg SUBLINGUAL DIRECTED PRN STOP taking 2 weeks before surgery If surgery is within 2 weeks, stop taking as soon as possible. lutein-zeaxanthin 2 cap PO QAM vitamin A 8,000 unit PO QAM vitamin E 800 unit PO QAM DO NOT take the morning of surgery cholecalciferol (vitamin D3) [Vitamin D3] 2,000 unit PO QAM cyanocobalamin (vitamin B-12) [Vitamin B-12] 5,000 mcg SUBLINGUAL QAM lisinopril 5 mg PO QAM Take morning of surgery With a small sip of water, OTHERWISE NOTHING TO EAT OR DRINK AFTER MIDNIGHT: albuterol sulfate [ProAir HFA] 1 puff INHALATION Q6H PRN (if needed, and bring with you to the hospital) aspirin [Aspirin Low Dose] 81 mg PO QAM ezetimibe 10 mg PO QAM metoprolol succinate 50 mg PO QAM Other Notes If you have any questions please call us at [phone] or [phone] or [phone] or [phone]
--- NOTE | 2019-12-01 08:33 | Anesthesiology Consultation ---
Date of Service December 01, 2019 Assessment & Plan (1) Encounter for pre-operative examination: Cardiology Clearance 11/12/19 = "Moderate perioperative cardiovascular risk. Patient's cardiac condition is stable and functional status is good. In the absence of a clinical cardiac indication for mechanical revascularization, independent of the need for surgery, mechanical revascularization does not change risk for non-cardiac surgery. Patient has no clinical cardiac indication for mechanical revascularization at this time. Therefore no further cardiac testing recommended. Perioperative cardiovascular risk discussed with patient at length. He voiced understanding and is agreeable to proceed with surgery. Continue aspirin and beta-awais therapy uninterrupted perioperatively." Chart Review Chart Review: Acceptable Risk for Surgery and Patient seen in Pre Admission Testing Teaching & Discussion Instructed NPO after midnight before surgery, except medications with 15 cc of water. Medication instructions provided according to the PAT guidelines. History Surgery Operation Date: 12/11/19 07:00 Proposed Procedures p Right Total Knee Replacement - Luis Bahena MD Height/Weight Height: 5 ft 8 in Weight: 101.9 kg Allergies Allergy/AdvReac Type Severity Reaction Status Date / Time No Known Allergies Allergy Verified 11/30/19 09:53 Medications Home Medications Medication Instructions Recorded Confirmed Last Taken Wheeled Walker #1 ea 11/30/19 Unknown albuterol sulfate [ProAir HFA] 1 puff INHALATION Q6H PRN 11/30/19 11/30/19 Unknown aspirin [Aspirin Low Dose] 81 mg PO QAM 11/30/19 11/30/19 Unknown cholecalciferol (vitamin D3) 2,000 unit PO QAM 11/30/19 11/30/19 Unknown [Vitamin D3] cyanocobalamin (vitamin B-12) 5,000 mcg SUBLINGUAL QAM 11/30/19 11/30/19 Unknown [Vitamin B-12] ezetimibe 10 mg PO QAM 11/30/19 11/30/19 Unknown lisinopril 5 mg PO QAM 11/30/19 11/30/19 Unknown lutein-zeaxanthin 2 cap PO QAM 11/30/19 11/30/19 Unknown metoprolol succinate 50 mg PO QAM 11/30/19 11/30/19 Unknown nitroglycerin 0.4 mg SUBLINGUAL DIRECTED PRN 11/30/19 11/30/19 Unknown vitamin A 8,000 unit PO QAM 11/30/19 11/30/19 Unknown vitamin E 800 unit PO QAM 11/30/19 11/30/19 Unknown Past Medical History Medical History (Updated 12/01/19 @ 15:37 by Brian Robbins) Asthma Using very rarely, less than once/year CAD (coronary artery disease) NSTEMI 08/16/15 s/p ELVIE x2 (overlapping) to the proximal and mid right coronary artery. Drug-eluting stent implanted to obtuse marginal vessel December 12, 2015 due to the exertional angina. Apical LAD disease managed medically. Hx of Lyme disease Hx of myocardial infarction PRIOR TO FIRST CATH IN [place] 2014; TREATED AT [facility] Osteoarthritis Right knee DJD Exercise / Class Metabolic Activity II 4-5 Yardwork/Stairs/Walk up hill (DENIES CP OR SOB WITH 1 FOS) Past Family History Family History Father Family hx of colon cancer Past Surgical History Surgical History History of nasal surgery DEVIATED SEPTUM History of surgery on right wrist D/T TRAUMATIC SURGERY Hx of cardiac cath STENT X3 2014; AND STENT X1 2015 Hx of cholecystectomy Hx of colonoscopy Hx of tonsillectomy Hx of total ankle replacement LEFT Past Anesthesia History No Family Hx of Anesthesia Complications Pt reports remote h/o low BP during colonoscopy and taking "a long time" to wake up after more remote surgery. Has not had this problem with more recent surgeries. LAP BUD 03/28/18 = BROWN #2, ETT 8.0. Grade view III, cricoid pressure used to improve view, atraumatic x 1 attempt. "Atraumatic NGT to 55 cm, gastric contents returned, pulled on suction." History of PONV No Hx of PONV and No Hx of Motion Sickness Social History Smoking Status: Former smoker Do You Dip or Chew Tobacco: No Smoking End Date: 1976 Hx Alcohol Use: Yes Alcohol type: beer alcohol intake frequency: a few times a month Hx Substance Use: No Review of Systems Pt denies any recent chest pain, shortness of breath, palpitations, cough, fever or URI. Physical Exam Vital Signs BP: 120/75 P: 72bpm SPO2: 94% RA T: 98.5 F R: 16 ENMT Mouth: + dental restorations (few crowns, upper incisors veneer); no chipped teeth and no loose teeth Thyromental Distance: < 3.5 Finger Breadths (2.5) Mallampati Class: II Neck normal visual inspection; neck extension not limited Respiratory normal respiratory effort Auscultation: lungs clear to auscultation bilaterally Cardiovascular Rate/Rhythm: regular rate and regular rhythm Heart Sounds: no murmur Vessels: no carotid bruit Testing Laboratory Results 12/01/19 08:36 PT 10.4 Seconds (9.0-12.0) 12/01/19 08:36 INR 1.0 (0.9-1.1) 12/01/19 08:36 APTT 28.8 Seconds (21.0-31.0) 12/01/19 08:36 Blood Type O Positive 12/01/19 08:36 Antibody Screen NEGATIVE 12/01/19 08:36 11/06/19 SODIUM: 142 POTASSIUM: 4.2 CHLORIDE: 107 CO2: 23 BUN: 23 CREATININE: 0.9 GLUCOSE: 104 Electrocardiogram Date: 11/12/19 Findings: + NSR @ (61bpm) Chest X-Ray Date: 12/01/19 Findings: + NAD Stress Test Date: 12/17/17 Type: DSE Resting EF: 55-59% Stress echo is negative for inducible ischemia. Rest echo shows normal EF, grade I diastolic dysfunction. Mild aortic regurgitation; mild tricuspid regurgitation. No pulmonary HTN.
--- NOTE | 2019-12-01 09:04 | XRay Report ---
XR chest Pre-admission PA/Lat HISTORY: Preop. COMPARISON: Chest 03/27/2018. FINDINGS: The lungs are clear. Cardiac silhouette is normal in size. No pleural effusions. No pneumot horax. IMPRESSION: No acute process. ACT 112: Negative or not required by law. Electronically signed by: Sher Santoyo M.D. 12/01/2019 9:03 AM
[2019-12-01 10:41] LABS: Basophils # (auto) 0.05 K/uL (0-0.2); Basophils % (auto) 0.9 %; Eosinophils # (auto) 0.38 K/uL (0-0.5); Eosinophils % (auto) 6.5 %; Hematocrit (blood only) 47.3 % (42-52); Hemoglobin 16.4 g/dL (14.0-18.0); Immature Granulocytes # (auto) 0.02 K/uL (0.00-0.02); Immature Granulocytes % (auto) 0.3 %; Lymphocytes # (auto) 1.84 K/uL (1.2-3.4); Lymphocytes % (auto) 31.6 %; Mean Corpuscular Hemoglobin 30.3 pg (25-34); Mean Corpuscular Hgb Conc 34.7 g/dL (32-36); Mean Corpuscular Volume 87.3 fL (80-100); Mean Platelet Volume 11.2 fL (7.4-10.4); Monocytes # (auto) 0.46 K/uL (0.11-0.59); Monocytes % (auto) 7.9 %; Neutrophils # (auto) 3.07 K/uL (1.4-6.5); Neutrophils % (auto) 52.8 %; Platelet Count 155 K/uL (130-400); RDW Coefficient of Variation 13.5 % (11.5-14.5); RDW Standard Deviation 42.7 fL (36.4-46.3); Red Blood Count 5.42 M/uL (4.7-6.1); White Blood Count 5.82 K/uL (4.8-10.8)
[2019-12-01 10:53] LABS: Partial Thromboplastin Ratio 1.1; Partial Thromboplastin Time 28.8 Seconds (21.0-31.0); Prothrombin Time 10.4 Seconds (9.0-12.0)
--- NOTE | 2019-12-05 14:36 | History and Physical Report ---
DATE OF ADMISSION: 12/11/2019 CHIEF COMPLAINT: Persistent right knee pain and discomfort. 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 He has got a long history of right knee pain and discomfort that has gradually gotten worse over the past several years. We have been putting shots and injection into his knees for several years, which has become less successful. He had an ankle replacement done in [place] in 12/2017 and have been struggling through this and wanted to get better before considering his right knee surgery. He continues to be limited by right knee pain. It is global pain, a little bit more medial than lateral. The more he walks, the more it hurts. He limps more as the day goes on. He has had swelling as well. He has nighttime pain. He would now like to have his right knee fixed. PAST MEDICAL HISTORY: Significant for, 1. Coronary artery disease status post cardiac stent placement, once in 07/2015 and once in 2015. Recent cardiac clearance by Dr. Fox. 2. Kidney stones. 3. Hypertension. 4. Elevated cholesterol. PAST SURGICAL HISTORY: Previous surgeries include: 1. Ankle replacement done in 12/2017. 2. Ankle scope in 11/2018 at [place]. 3. Ganglion cyst removed from his wrist in 2018. 4. Carpal tunnel release. 5. Fibular fracture in 09/2004. ALLERGIES: None. CURRENT MEDICINES: Include: 1. Lisinopril 5 mg. 2. Metoprolol 50 mg. 3. Aspirin 81 mg. 4. Albuterol. 5. Flonase inhaler. 6. Zetia 10 mg a day. SOCIAL HISTORY: A 64-year-old male. 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 Does not smoke. FAMILY HISTORY: Noncontributory. REVIEW OF SYSTEMS: Significant for underlying heart disease with a recent clearance by Dr. Fox. He is asymptomatic from the heart standpoint. No chest pain or shortness of breath. No history of DVT or PE. No known bleeding problems. He had no issues with infection from his ankle replacement, although it has not done great. PHYSICAL EXAMINATION: GENERAL: Reveals a healthy, pleasant middle-aged male. Looks to be in good health. HEENT: Benign. NECK: Supple. No lymphadenopathy. LUNGS: Clear to auscultation. HEART: Has a regular rate and rhythm. ABDOMEN: Soft, nontender, nondistended. EXTREMITIES: Grossly neurovascularly intact except as follows. Examination of the right knee reveals the patient ambulates independently. He does limp on the right side. He has got varus alignment to his knee. He has got bony hypertrophy medially. When he is weightbearing, he does have a varus thrust. Range of motion about 5 degrees short of full extension to 120 degrees of flexion. A little bit of laxity to Solitario testing. No pivot. No varus or valgus instability. No pain with hip motion. X-RAYS: X-rays of the right knee reviewed. It shows advanced right knee DJD. He has got complete loss of his medial joint space. He has significant subchondral sclerosis and osteophytes off the medial femoral condyle and medial tibial plateau. 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 He has failed conservative care and would like to have his right knee replaced. PLAN: We are going to take him to the Operating Room and do right total knee replacement. The risks and benefits of this procedure were explained to the patient including but not limited to DVT, PE, , infection, neurological injury, vascular injury, bleeding problem, pain, limited range of motion, stiffness, failure to relieve symptoms, incomplete relief of symptoms, need for further surgery in future, fracture, leg length inequality, incomplete relief of symptoms, etc. The patient understands and desires to proceed. We did get a sed rate and C-reactive protein, which are both normal just to make sure he has no residual signs of ankle problems or infection in the ankle. As far as discharge plans, he is planning to be discharged to home using [facility]. We did talk to him about holding his lisinopril the morning of surgery and take his metoprolol the morning of surgery.
[~2019-12-11 08:06] MED LIST changes: +ACETAMINOPHEN 500 MG TAB PO SCH; -ALBU1AER9 INH; -ASPI-320 PO; -BIOTCAP2 PO; +BUPIVACAINE 0.5 % 5 MG/1 ML PF 10ML VIAL ONE; +BUPIVACAINE LIPOSOME/PF 266 MG, BUPIVACAINE/EPINEPHRINE 50 ML, SODIUM CHLORIDE 0.9% 30 ... INFIL SCH; +CEFAZOLIN 2000MG 2,000 MG/15 ML SYR IV SCH; -CHOL100010 PO; -CLOP1TAB5 PO; -CYAN500T PO; +FAMOTIDINE 20 MG TAB PO SCH; -FLNIN/ NAE; +GABAPENTIN 300 MG CAP PO SCH; -GLUCTAB7 PO; +LR 500ML BOLUS, THEN 15ML/HR IV SCH; +LR 60ML/HR IV SCH; -LSN5 PO; -LUTE6TAB PO; -METO-452 PO; +METOCLOPRAMIDE HCL 10 MG TABLET PO SCH; -NTRSLP4 SL; -OMEG10007 PO; +ROPIVACAINE 0.5% 5 MG/ML 30 ML VIAL ONE; +SCOPOLAMINE 1.5 MG TDSY TD SCH; +TRANEXAMIC ACID 1,000 MG **IV Intra-op IV SCH; -VITATAB19 PO
[2019-12-11] MEDS ORDERED: MIDAZOLAM HCL 1 MG/ML 2ML VIAL ONE (08:13)
--- NOTE | 2019-12-11 08:30 | History & Physical Bridge Note ---
Date of Service December 11, 2019 History & Physical Bridge Note I have examined the patient, reviewed the History & Physical and in the interval since the performance of the History & Physical I have noted the following changes of clinical significance: no changes noted
[2019-12-11] MEDS ORDERED: TRANEXAMIC ACID / 0.7% NACL 1000MG/100ML BAG IV ONE (08:51)
[2019-12-11] MEDS ORDERED: BUPIVACAINE/EPINEPHRINE 0.25% 1:200,000 30 ML VIAL ONE (09:35)
[2019-12-11] MEDS ORDERED: BUPIVACAINE LIPOSOME 1.3% 266 MG/20 ML VIAL ONE (09:36)
[2019-12-11] MEDS ORDERED: BACITRACIN INJ 50,000 UNIT VIAL ONE (09:36)
[2019-12-11] MEDS ORDERED: SODIUM CHLORIDE 0.9% PF 50 ML VIAL ONE (09:36)
[2019-12-11] MEDS ORDERED: PROPOFOL IV EMULSION 10 MG/ML 20 ML VIAL IV ONE (11:03)
--- NOTE | 2019-12-11 12:16 | Post Operative Brief Note ---
PG Immediate Post Op with CF Date of Surgery December 11, 2019 Pre & Post Diagnosis Operation Date: 12/11/19 10:40 Pre-Op Diagnosis: RIGHT KNEE DEGENERATIVE JOINT DISEASE W/KNEE PAIN Post-Op Diagnosis: RIGHT KNEE DEGENERATIVE JOINT DISEASE W/KNEE PAIN I identified the patient and participated in the time-out.: Yes Procedure Operation Date: 12/11/19 10:40 Actual Procedures p Right Total Knee Replacement(Right) - Luis Bahena MD Surgeon Luis Bahena MD Service Aide Jason, [facility] Estimated Blood Loss 50 Findings Consistent with Post-Op Diagnosis Fluids 700 cc Specimens Specimen Description: Permanent Specimen: A) Right Knee Bone and Tissue Drains Cardenas Catheter Anesthesia Type Spinal MAC Complications none Disposition Accompanied Patient To Recovery: No Disposition: Recovery Room
--- NOTE | 2019-12-11 12:41 | XRay Report ---
XR knee RT 1 or 2V routine CLINICAL HISTORY: Surgical Post Op COMPARISON: None. DISCUSSION: Anatomic alignment posttotal right knee arthroplasty. Good contact between prosthetic and underlying bone. Expected postoperative soft tissue change IMPRESSION: Anatomic alignment posttotal right knee arthroplasty. ACT 112: Negative or not required by law. The above report was generated using voice recognition software. It may contain grammatical, syntax or spelling errors. Electronically signed by: Hoang Rasmussen M.D. 12/11/2019 12:39 PM
[2019-12-11] MEDS ORDERED: ONDANSETRON INJ 2 MG/ML 2 ML VIAL IV PRN (13:19)
[2019-12-11] MEDS ORDERED: ePHEDrine sulfate 50 MG/ML AMP IV PRN (13:19)
[2019-12-11] MEDS ORDERED: HYDROmorphone INJ 1 MG/ML SYRINGE IV PRN (13:19)
[2019-12-11] MEDS ORDERED: ATROPINE SULFATE 0.1 MG/ML 10ML SYR IV PRN (13:19)
--- NOTE | 2019-12-11 13:20 | Anesthesiology Progress Note ---
Date of Service December 11, 2019 Anesthesia Post Procedure Vital Signs Vital Signs: Temp Pulse Pulse Resp BP Pulse Ox 12/11/19 13:10 36.1 C L 52 L 13 118/76 97 12/11/19 13:00 54 L 12 118/73 96 12/11/19 12:50 51 L 12 125/66 96 12/11/19 12:40 52 L 12 113/66 98 12/11/19 12:30 55 L 15 116/65 100 12/11/19 12:23 36.3 C L 60 12 119/61 98 12/11/19 08:42 37.4 C 66 18 140/74 96 Pain Intensity Right Knee: Pain Intensity: 0 Transfer of Care Handoff Completed per policy Notes Mental Status: alert / awake / arousable Patient Amnestic to Procedure: Yes Nausea / Vomiting: adequately controlled Pain: adequately controlled Airway Patency, RR, SpO2: stable & adequate BP & HR: stable & adequate Hydration State: stable & adequate Anesthetic Complications: no major complications apparent
[2019-12-11] MEDS ORDERED: bisacodyL 10 MG SUPP PR PRN (14:24)
[2019-12-11] MEDS ORDERED: ALUMINUM/MAGNESIUM SUSP 30 ML UDC PO PRN (14:24)
[2019-12-11] MEDS ORDERED: MAGNESIUM HYDROXIDE SUSP 30 ML UDC PO PRN (14:24)
[2019-12-11] MEDS ORDERED: METOCLOPRAMIDE HCL INJ 5 MG/ML 2 ML VIAL IV PRN (14:24)
[2019-12-11] MEDS ORDERED: NITROGLYCERIN SL 0.4 MG/TAB TAB SL PRN (14:24)
[2019-12-11] MEDS ORDERED: ALBUTEROL HFA 8 GM INHALER INH PRN (14:24)
[2019-12-11] MEDS ORDERED: HYDROmorphone INJ 0.5 MG/0.5 ML SYR IV PRN (14:24)
[2019-12-11] MEDS ORDERED: NALOXONE HCL 0.4 MG/1 ML VIAL/CARP IV PRN (14:24)
[2019-12-11] MEDS ORDERED: TAMSULOSIN HCL 0.4 MG CAP PO PRN (14:24)
[2019-12-11] MEDS: CHECK SCOPOLAMINE PATCH PLACEMENT SCH (16:11)
[2019-12-11] MEDS: SODIUM CHLORIDE 0.9% 1000ML 1,000 ML IV SCH ×2 (16:11→23:46)
[2019-12-11] MEDS: ACETAMINOPHEN 500 MG TAB PO SCH ×2 (16:11→21:44)
[2019-12-11] MEDS: FERROUS GLUCONATE 324 MG TAB PO SCH (17:47)
[2019-12-11] MEDS: KETOROLAC TROMETHAMINE 15 MG/ML VIAL IV SCH ×2 (17:47→23:46)
[2019-12-11] MEDS: ASCORBIC ACID 500 MG TAB PO SCH (17:47)
[2019-12-11] MEDS: CEFAZOLIN 2000MG 2,000 MG/15 ML SYR IV SCH (17:48)
--- NOTE | 2019-12-11 18:18 | Operative Report ---
Post Operative Report Pre & Post Diagnosis Operation Date: 12/11/19 10:40 Pre-Op Diagnosis: RIGHT KNEE DEGENERATIVE JOINT DISEASE W/KNEE PAIN Post-Op Diagnosis: RIGHT KNEE DEGENERATIVE JOINT DISEASE W/KNEE PAIN I identified the patient and participated in the time-out.: Yes Procedure Operation Date: 12/11/19 10:40 Actual Procedures p Right Total Knee Replacement(Right) - Luis Bahena MD Surgeon Luis Bahena MD Personnel Security Specialist Jason, PAC Estimated Blood Loss 50 Findings Consistent with Post-Op Diagnosis Operative findings revealed advanced right knee DJD. He had a fixed varus deformity to his knee with a moderate to a joint effusion. He had a chronic ACL tear. He had extensive grade 4 [id number] disease and eburnation of the medial femoral condyle medial tibial plateau. He had less severe spotty grade 4 changes of the patellofemoral joint and lateral compartment compartment. Fluids 700 cc Specimens Right knee sent for pathology. Drains None. Anesthesia Type Spinal MAC Complications none Disposition Accompanied Patient To Recovery: No Disposition: Recovery Room Indications Patient is a 64-year-old fairly active gentleman whose had a long history of right knee pain discomfort. I have been following for years for his knee arthritis. He has been through extensive conservative treatment which became less successful over time. He had a left ankle replacement 2 years ago in [place] and was cut to wait for this to get better to proceed with right knee replacement. He is now like to proceed proceed with a total knee arthroplasty. Description of Procedure Operative implants consist of: 1. A Biomet Vanguard size 72.5 right posterior by femoral component. 2. Biomet size 75 tibial tray. 3. A 12 mm posterior box polyethylene insert. 4. 31 x 8 all poly-patella. Patient was taken to the operating room identified and placed on the operating room table in supine position. All contact areas were appropriately padded. IV antibiotics were 5 by anesthesia team. Cardenas catheter was placed in sterile fashion. Right thigh tip was then placed in the right lower extremities and prepped and draped in usual sterile fashion. New breath right leg was elevated and exsanguinated with use of an Esmarch interspace at 3 mmHg. An anterior approach to the right knee was then performed to a longitudinal incision centered over the patella. Sharp dissection was cut through subcutaneous tissue down over the extensor mechanism. Medial parapatellar arthrotomy incision was made. Some subperiosteal dissection was carried out medially. The fat pad resected from each patella tendon. Lateral patellofemoral ligament was released. The patella was subluxated laterally and the knee was flexed. The osteophytes were taken off the distal femur. The ACL was absent. The PCL was released from the distal femur and the tibia subluxated anteriorly. The external tibial alignment jig was then placed in the interface the tibia and adjusted 14 mm medially. Proximal tibial cut was made to move out a millimeter bone from most efficient aspect medial tibial plateau. Tibia was then sized to a size 75. Some osteophytes were taken off medial and posterior medially. Attention drawn the femur. The distal femur returned with a sharp drop with intramedullary canal was suction. A right 6 degree valgus cutting guide was placed. This femoral cutting block was pinned in place but distal femoral cut was made to take an additional 3 mm of bone off distal femur. Femur was then sized to a size 72.5. The AP cutting block was pinned parallel to the epicondylar axis which was 3 degrees of external rotation. The anterior cut, anterior chamfer, posterior cut, posterior chamfer cuts were made. Box cutting guide was placed in just slight lateral and the box cut was made. The knee was flexed. The remnants of the medial lateral menisci were excised. The osteophytes were taken off the posterior aspect of the femur. Trial femoral component was placed. The tibial tray was pinned in maximum external rotation drill and stem punch were used to create defect in proximal tip for the tibial tray. The knee was then trialed the 12 mm insert fit most appropriately. Attention drawn the patella. The patella was cleaned of all soft tissues. Patella thickness measured 25 mm in thickness and was cut down to 15. Size a size 31 patella. The locals were drilled for 31 patella. The lateral osteophyte is moved. Patella button was placed. Knee was taken through range of motion and patella tracked nicely with no thumbs test. Attention turned to placing the permanent components. All trial components were removed. A bone plug was placed in the disc femur limit blood loss. I irrigated the wound extensively. A double batch Palacos G cement was mixed. A Biomet Vanguard size 72.5 right posterior by femoral component, size 75 tibial tray, 12 mm posterior box polyethylene insert, and 31 x 8 all poly-patella were then cemented in place. Knee was brought out into full extension total cement hardened. Final cement check was then performed. Pericapsular tissues were injected with total of 100 cc of combination of 20 cc of Exparel, 30 cc normal saline, 50 cc of quarter percent Marcaine with epin ephrine. Patient did receive 1 g of tranexamic acid per the tourniquet was let down for final tourniquet time of 55 minutes. Hemostasis assured use electrocautery. The extensor mechanism then closed with combination 1 PDS suture #1 Vicryl suture in [id number] fashion for extensor mechanism checked found to be intact the subcutaneous tissue then closed with 2 Dexon suture in a buried interrupted fashion skin was closed skin viki. Leg was then cleaned dried a sterile dressing composed of Xeroform, 4 x 4's, sterile cast padding, Vasquez bandage were applied. Patient then transferred to the recovery room in stable condition. Patient tolerated the procedure well no complications. I attest to the content of the Intraoperative Record and any orders documented therein. Any exceptions are noted below.
[2019-12-11] MEDS ORDERED: TRANEXAMIC ACID / 0.7% NACL 1,000 MG/100 ML BAG IV SCH (18:19)
[2019-12-11] MEDS: HYDROmorphone HCL 2 MG TAB PO PRN (21:43)
[2019-12-11] MEDS: TAPENTADOL HCL ER 50 MG TABCR PO SCH (21:43)
[2019-12-11] MEDS: ASPIRIN 81 MG ECTAB PO SCH (21:45)
[2019-12-11] MEDS: DOCUSATE SODIUM 100 MG CAP PO SCH (21:45)
[2019-12-11] MEDS: SENNA 8.6 MG TAB PO SCH (21:45)
[2019-12-12] MEDS: CHECK SCOPOLAMINE PATCH PLACEMENT SCH (00:19)
[2019-12-12] MEDS: CEFAZOLIN 2000MG 2,000 MG/15 ML SYR IV SCH (02:19)
[2019-12-12] MEDS ORDERED: COUGH DROP (SUGAR FREE) LOZ 24 LOZ/1 BOX BUCCAL ONE (05:48)
[2019-12-12] MEDS: ACETAMINOPHEN 500 MG TAB PO SCH ×3 (06:04→21:19)
[2019-12-12] MEDS: KETOROLAC TROMETHAMINE 15 MG/ML VIAL IV SCH ×4 (06:04→23:33)
[2019-12-12 06:37] LABS: Hematocrit (blood only) 36.2 % (42-52); Hemoglobin 12.4 g/dL (14.0-18.0); Mean Corpuscular Hemoglobin 29.7 pg (25-34); Mean Corpuscular Hgb Conc 34.3 g/dL (32-36); Mean Corpuscular Volume 86.8 fL (80-100); Mean Platelet Volume 10.6 fL (7.4-10.4); Platelet Count 127 K/uL (130-400); RDW Coefficient of Variation 13.4 % (11.5-14.5); RDW Standard Deviation 42.9 fL (36.4-46.3); Red Blood Count 4.17 M/uL (4.7-6.1); White Blood Count 7.39 K/uL (4.8-10.8)
[2019-12-12 07:07] LABS: BUN Creatinine Ratio 12.8 (10-20); Calcium 7.8 mg/dl (8.5-10.1); Creatinine Clr Calc Pharmacy 100.3 ml/min; Est GFR (Non-African American) 91.4; Potassium 3.9 mmol/L (3.5-5.1)
[2019-12-12] MEDS: HYDROmorphone HCL 2 MG TAB PO PRN ×2 (08:42→16:01)
[2019-12-12] MEDS: FERROUS GLUCONATE 324 MG TAB PO SCH ×2 (08:44→17:32)
[2019-12-12] MEDS: ASCORBIC ACID 500 MG TAB PO SCH ×2 (08:45→17:31)
[2019-12-12] MEDS: TOCOPHERYL, DL-ALPHA 400 UNITS CAP PO SCH (08:45)
[2019-12-12] MEDS: CYANOCOBALAMIN (VITAMIN B-12) 2,500 MCG TAB.SUBL SL SCH (08:45)
[2019-12-12] MEDS: MULTIVITAMIN TAB PO SCH (08:45)
[2019-12-12] MEDS: DOCUSATE SODIUM 100 MG CAP PO SCH ×2 (08:46→21:18)
[2019-12-12] MEDS: CHOLECALCIFEROL 1,000 UNITS TAB PO SCH (08:46)
[2019-12-12] MEDS: ASPIRIN 81 MG ECTAB PO SCH ×2 (08:46→21:18)
[2019-12-12] MEDS: METOPROLOL SUCC 50MG EXT REL TAB PO SCH (08:47)
[2019-12-12] MEDS: lisinopriL 5 MG TAB PO SCH (08:47)
[2019-12-12] MEDS: EZETIMIBE 10 MG TABLET PO SCH (08:47)
[2019-12-12] MEDS: TAPENTADOL HCL ER 50 MG TABCR PO SCH ×2 (08:56→21:23)
[2019-12-12] MEDS ORDERED: LUTEIN ZEAXANTHIN PO SCH (09:00)
[2019-12-12] MEDS ORDERED: NON-FORMULARY MEDICATION (Vitamin A 8,000 UNITS) PO SCH (09:00)
--- NOTE | 2019-12-12 09:54 | Progress Note ---
DATE: 12/12/2019 SUBJECTIVE: A 64-year-old gentleman postop day 1 from right knee replacement. He is doing pretty well. Some pain with activity and that mostly is manageable. No chest pain or shortness of breath. Not feeling dizzy or lightheaded. OBJECTIVE: VITAL SIGNS: Temperature 36.6. Vital signs stable. GENERAL: Shows a pleasant, middle-aged male. He is sitting up in his bedside chair eating breakfast. Looks comfortable. LUNGS: Clear to auscultation. HEART: Has a regular rate and rhythm. ABDOMEN: Soft, nontender, nondistended. EXTREMITIES: Grossly neurovascularly intact except as follows. Examination of the right leg reveals the dressing to be clean, dry, and intact. He can dorsiflex and plantarflex his foot appropriately. He is neurologically intact. LABORATORY DATA: Hemoglobin is 12.4. Hematocrit 36.2. Electrolytes are stable. ASSESSMENT: A 64-year-old gentleman postop day 1 from right knee replacement, doing pretty well. Pain is controlled. He is neurologically intact. PLAN: 1. DVT prophylaxis including thigh-high TEDs, SCDs, and aspirin twice a day. 2. PT/OT. Weight bear as tolerated. Right total knee protocol. 3. Pain control, doing pretty well with current pain regimen. 4. Disposition: Plan to discharge to home with some home health once adequately recovered and medically stable.
[2019-12-12] MEDS: ONDANSETRON INJ 2 MG/ML 2 ML VIAL IV PRN ×2 (12:25→19:09)
[2019-12-12] MEDS: SENNA 8.6 MG TAB PO SCH (21:19)
[2019-12-13] MEDS: KETOROLAC TROMETHAMINE 15 MG/ML VIAL IV SCH (06:10)
[2019-12-13] MEDS: ACETAMINOPHEN 500 MG TAB PO SCH (06:10)
[2019-12-13] MEDS: ONDANSETRON INJ 2 MG/ML 2 ML VIAL IV PRN (08:27)
[2019-12-13] MEDS: TAPENTADOL HCL ER 50 MG TABCR PO SCH (08:35)
[2019-12-13] MEDS: ASPIRIN 81 MG ECTAB PO SCH (08:35)
[2019-12-13] MEDS: lisinopriL 5 MG TAB PO SCH (08:35)
[2019-12-13] MEDS: EZETIMIBE 10 MG TABLET PO SCH (08:35)
[2019-12-13] MEDS: CYANOCOBALAMIN (VITAMIN B-12) 2,500 MCG TAB.SUBL SL SCH (08:36)
[2019-12-13] MEDS: CHOLECALCIFEROL 1,000 UNITS TAB PO SCH (08:36)
[2019-12-13] MEDS: MULTIVITAMIN TAB PO SCH (08:36)
[2019-12-13] MEDS: FERROUS GLUCONATE 324 MG TAB PO SCH (08:36)
[2019-12-13] MEDS: DOCUSATE SODIUM 100 MG CAP PO SCH (08:36)
[2019-12-13] MEDS: TOCOPHERYL, DL-ALPHA 400 UNITS CAP PO SCH (08:37)
[2019-12-13] MEDS: ASCORBIC ACID 500 MG TAB PO SCH (08:37)
[2019-12-13] MEDS: METOPROLOL SUCC 50MG EXT REL TAB PO SCH (08:37)
--- NOTE | 2019-12-13 12:31 | Progress Note ---
DATE: 12/13/2019 SUBJECTIVE: A 64-year-old gentleman postop day 2 from right knee replacement. He is doing pretty well. Having some pain, but controlled. No chest pain or shortness of breath. Not feeling dizzy or lightheaded. Therapy went pretty well. OBJECTIVE: VITAL SIGNS: Temperature 36.6. Vital signs stable. GENERAL: Shows a pleasant, middle-aged male. He is sitting up at the edge of his bed with dangling his feet over and looks pretty comfortable this morning. EXTREMITIES: Examination of the right leg reveals the leg to be well aligned. Dressing is clean, dry and intact. His calf is soft and supple. He is neurologically intact. ASSESSMENT: A 64-year-old gentleman postop day 2 from a right knee replacement, doing pretty well. Pain is controlled. He is neurologically intact. PLAN: 1. DVT prophylaxis including thigh-high TEDs, SCDs and aspirin twice a day. 2. PT/OT. Weight bear as tolerated. Right total knee protocol. 3. Pain control, doing pretty well with current pain regimen. 4. Disposition. Plan to discharge to home with some home health later today after therapy.
--- NOTE | 2019-12-14 15:52 | Discharge Summary ---
ADMITTING PHYSICIAN AND SURGEON: Dr. Luis Bahena. ADMITTING DIAGNOSIS: Right knee degenerative joint disease. SURGERY PERFORMED: Right total knee arthroplasty. SECONDARY DIAGNOSES: Coronary artery disease, kidney stones, hypertension, elevated cholesterol. CONSULTS: None obtained. HISTORY AND PHYSICAL EXAMINATION: Well-documented in the patient's chart. HOSPITAL COURSE: The patient was admitted on 12/11/2019, underwent total knee arthroplasty, tolerated the procedure well. There were no complications. He was transferred to the PACU postoperatively and later to the orthopedic floor for further care. He was given Ancef for antibiotic prophylaxis, MAEVE stockings, SCDs and aspirin for DVT prophylaxis. Hemoglobin, hematocrit and vital signs were monitored during his hospital stay and remained stable, did not require any blood transfusions. There were no complications. By postoperative day 2, he was tolerating a regular diet, pain was controlled with oral pain medicine. He was participating in physical therapy. Postop day 2, he was discharged home, set up with home health services. He is given printed discharge instructions as well as new prescriptions for extra strength Tylenol, aspirin and hydromorphone. Continue his home medications, continue physical therapy, weightbearing as tolerated, MAEVE stockings. Follow up approximately 2 weeks postoperatively or sooner if there are any problems or concerns.
== END 2019-12-13 11:15 | disposition home health service (06) | DRG 470 ==
LOC: ASU 08:06 → INTOOBSV 12:20 → 3E 12:20

== ENCOUNTER 2022-01-14 14:05 | Observation (INO) ==
[2022-01-14] MEDS ORDERED: NITROGLYCERIN 2% OINTMENT 30GM TUBE EXT STA (14:21)
--- NOTE | 2022-01-14 14:26 | Emergency Department Note ---
History of Present Illness General Chief complaint: Chest Pain Stated complaint: CHEST PAIN, LIGHT HEADED, R ARM PAIM Time Seen by Provider: 01/14/22 14:14 Source: patient History of Present Illness Provider complaint: Chest pain Onset (ago): hour(s) Location: chest Radiation: neck and extremity (Right shoulder) Pain Consistency: + intermittent Maximum Pain Intensity: 8 Quality: + aching and + dull Relieved By: + medication (Nitroglycerin) Associated symptoms: + chest pain and + headaches; no cough, no fever/chills, no nausea/vomiting or no shortness of breath This is a 66-year-old male with a history of cardiac stent presenting with chest pain starting approximately 11 AM this morning. He states the pain is in the middle of his chest which radiates to his Kenny's apple and to his right shoulder. He states when he had his last heart attack it was mostly in his throat and upper chest. He describes it as a dull ache. At its worst it was an 8 out of 10 in severity. He took some nitroglycerin which seemed to relieve his pain, although it gave him a headache and made him feel lightheaded. He subsequently went on with his day and then developed chest pain again even while at rest so he decided to come here. He still has some very slight chest pain currently. He did take an aspirin earlier today. He has had no fever, cough or cold symptoms, abdominal pain, vomiting, diarrhea or urinary symptoms. He denies any leg swelling or pain other than spraining his left ankle. He has been using a walking boot because of a prior history of ankle surgery a year ago. He denies being immobilized due to the injury. Home Medications Medication Instructions Recorded Confirmed Type Wheeled Walker #1 ea 11/30/19 Rx albuterol sulfate 90 mcg/actuation 1 puff INHALATION Q6H PRN 11/30/19 01/14/22 History aerosol inhaler (ProAir HFA) cholecalciferol (vitamin D3) 50 2,000 unit PO QAM 11/30/19 01/14/22 History mcg (2,000 unit) capsule (Vitamin D3) ezetimibe 10 mg tablet 10 mg PO QAM 11/30/19 01/14/22 History lisinopril 5 mg tablet 5 mg PO QAM 11/30/19 01/14/22 History lutein 20 mg-zeaxanthin 1,000 mcg 2 cap PO QAM 11/30/19 01/14/22 History capsule metoprolol succinate 50 mg 50 mg PO QAM 11/30/19 01/14/22 History tablet,extended release 24 hr nitroglycerin 0.4 mg sublingual 0.4 mg SUBLINGUAL DIRECTED PRN 11/30/19 01/14/22 History tablet amoxicillin 500 mg tablet 2,000 mg PO ONCE #8 tab 01/27/21 01/14/22 Rx methylprednisolone 4 mg tablets in See Rx Instructions .ROUTE 08/01/21 01/14/22 Rx a dose pack .COMPLEX #21 ea ofloxacin 0.3 % ear drops 5 drp OTIC (EAR) BID 7 Days #10 ml 08/01/21 01/14/22 Rx multivitamin 1 tab PO DAILY 01/14/22 01/14/22 History Allergies Allergy/AdvReac Type Severity Reaction Status Date / Time No Known Allergies Allergy Verified 01/14/22 15:17 Past Med/Surg History Medical History Asthma Using very rarely, less than once/year CAD (coronary artery disease) NSTEMI 08/16/15 s/p ELVIE x2 (overlapping) to the proximal and mid right coronary artery. Drug-eluting stent implanted to obtuse marginal vessel December 12, 2015 due to the exertional angina. Apical LAD disease managed medically. Hx of Lyme disease Hx of myocardial infarction PRIOR TO FIRST CATH IN [place] 2014; TREATED AT [facility] Osteoarthritis Right knee DJD Surgical History History of nasal surgery DEVIATED SEPTUM History of surgery on right wrist D/T TRAUMATIC SURGERY Hx of cardiac cath STENT X3 2014; AND STENT X1 2015 Hx of cholecystectomy Hx of colonoscopy Hx of tonsillectomy Hx of total ankle replacement LEFT Family History Father Family hx of colon cancer Social History Smoking Status: Former smoker Second Hand Exposure: Yes (OCCASSIONALLY); Hx Alcohol Use: Yes Alcohol type: beer Hx Substance Use: No Preferred Language: Japanese Communication Ability: Effective Visual Impairment: No Limitations Beliefs That Will Affect Care: None Current Living Situation: Spouse Feels Safe at Home: Yes Assistive Devices: Walker Review of Systems See HPI for pertinent positives & negatives. and A total of 10 systems reviewed and were otherwise negative Physical Exam Vital Signs Vital Signs - 24 hr 01/14/22 14:10 01/14/22 14:26 01/14/22 14:30 Temperature 36.7 C Temperature Source Temporal Artery Scan Pulse Rate 70 67 65 Pulse Rate [Left Finger] Pulse Rhythm [Left Finger] Pulse Strength [Left Finger] Respiratory Rate 18 18 18 Respiratory Effort / Characteristics Respiratory Depth Respiratory Pattern Blood Pressure 130/76 119/73 Blood Pressure [Left Arm] Blood Pressure Mean 94 88 Blood Pressure Mean [Left Arm] Blood Pressure Position Sitting Blood Pressure Position [Left Arm] Pulse Oximetry 96 96 Oxygen Delivery Method Room Air Sepsis Recent Fever Within 48 Hours No Sepsis New/Unexplained Change in Mental Status No Sepsis Action Taken by Nursing No Action Required 01/14/22 14:34 01/14/22 14:37 01/14/22 16:00 Temperature Temperature Source Pulse Rate Pulse Rate [Left Finger] 64 Pulse Rhythm [Left Finger] Regular Pulse Strength [Left Finger] Normal Respiratory Rate 20 Respiratory Effort / Characteristics Non-Labored Spontaneous Respiratory Depth Normal Respiratory Pattern Regular Blood Pressure Blood Pressure [Left Arm] 101/68 Blood Pressure Mean Blood Pressure Mean [Left Arm] 79 Blood Pressure Position Blood Pressure Position [Left Arm] Sitting Pulse Oximetry 96 95 Oxygen Delivery Method Room Air Room Air Room Air Sepsis Recent Fever Within 48 Hours Sepsis New/Unexplained Change in Mental Status Sepsis Action Taken by Nursing Constitutional: Vital signs reviewed. Eyes: Pupils are equal round reactive to light. Conjunctiva are noninjected. ENT: Pharynx is clear without erythema or exudate. Mucous membranes are moist. Neck supple without meningeal signs. Respiratory: Clear to auscultation bilaterally. Breath sounds are equal bilaterally. Cardiovascular: Regular rate and rhythm. No rubs or gallops. GI: Soft, nondistended and nontender. Bowel sounds are present. Musculoskeletal: No peripheral edema. No lower extremity tenderness. Integumentary: No cyanosis. or jaundice. Neurological: The patient is awake and alert. No focal deficits. Psychiatric: Normal affect. Not anxious appearing. Course Administered Medications Discontinued Medications Nitroglycerin (Nitroglycerin 2% Ointment 30gm Tube) 0.5 inch EXT NOW STA Stop: 01/14/22 14:22 Last Admin: 01/14/22 14:32 Dose: 0.5 inch Documented by: [id number] Medical Decision Making Differential Diagnosis Unstable angina, IA, GERD, anxiety, pneumonia Medical Records Attestation: I reviewed the patient's medical records. I did perform a limited focused review of portions of the patient's old chart on the electronic medical record. The patient has had no recent pertinent visits to this hospital. Home Medications Current Medication List: was personally reviewed by me Laboratory Data Attestation: I reviewed the patient's lab results. Result diagrams: 01/14/22 14:25 01/14/22 14:25 Lab Results 01/14/22 01/14/22 01/14/22 Range/Units 14:25 14:25 14:25 WBC 8.50 (4.8-10.8) K/uL RBC 5.23 (4.7-6.1) M/uL Hgb 15.7 (14.0-18.0) g/dL Hct 45.4 (42-52) % MCV 86.8 (80-100) fL MCH 30.0 (25-34) pg MCHC 34.6 (32-36) g/dL RDW Std Deviation 46.9 H (36.4-46.3) fL RDW Coeff of Anna 14.6 H (11.5-14.5) % Plt Count 177 (130-400) K/uL MPV 10.4 (7.4-10.4) fL Immature Gran % (Auto) 0.4 % Neut % (Auto) 66.7 % Lymph % (Auto) 26.0 % [place] % (Auto) 4.9 % Eos % (Auto) 1.4 % Baso % (Auto) 0.6 % Neut # (Auto) 5.67 (1.4-6.5) K/uL Lymph # (Auto) 2.21 (1.2-3.4) K/uL [place] # (Auto) 0.42 (0.11-0.59) K/uL Eos # (Auto) 0.12 (0-0.5) K/uL Baso # (Auto) 0.05 (0-0.2) K/uL Immature Gran # (Auto) 0.03 H (0.00-0.02) K/uL Sodium 136 (136-145) mmol/L Potassium 3.9 (3.5-5.1) mmol/L Chloride 104 (98-107) mmol/L Carbon Dioxide 25 (21-32) mmol/L Anion Gap 7 (3-11) BUN 20 (6-23) mg/dl Creatinine 0.82 (0.6-1.4) mg/dl Est Cr Clr Drug Dosing 104.0 ml/min Est GFR ( Amer) 106.1 ml/min Est GFR (Non-Af Amer) 91.5 ml/min BUN/Creatinine Ratio 24.4 H (10-20) Glucose 157 H (70-99(Fasting)) mg/dl Calcium 8.7 (8.5-10.1) mg/dl Total Bilirubin 0.7 (0.2-1.0) mg/dl AST 17 (13-39) U/L ALT 25 (7-52) U/L Alkaline Phosphatase 64 (34-104) U/L Troponin I < 0.03 (0-0.04) ng/ml Total Protein 6.5 (6.0-8.3) gm/dl Albumin 3.8 (3.4-5.0) gm/dl Globulin 2.7 (2.5-4.0) gm/dl Albumin/Globulin Ratio 1.4 (0.9-2) Lipase 40 (11-82) U/L SARS-CoV-2, RNA, NAAT NEGATIVE (NEGATIVE) Imaging Data Radiologist's Impression: Chest X-Ray 01/14/22 14:22 XR chest 1V portable HISTORY: 66 years-old Male Chest Pain . Acute atypical chest pain COMPARISON: Chest radiograph 12/01/2019 TECHNIQUE: Portable AP view of the chest FINDINGS: Cardiac silhouette is enlarged. Lungs are mildly hypoinflated. Mild bibasilar densities. No pneumothorax, large pleural effusion or overt pulmonary edema. Degenerative changes of the shoulders and spine. IMPRESSION: Hypoinflation with mild bibasilar atelectasis. ACT 112: Negative or not required by law. The above report was generated using voice recognition software. It may contain grammatical, syntax or spelling errors. Electronically signed by: Fabian Cohen M.D. 01/14/2022 2:48 PM ECG Data Attestation: I personally reviewed and interpreted this ECG as follows: Indication: + chest pain Rate (beats per minute): 63 Rhythm: + normal sinus ECG Cement: + Left axis deviation ECG ST segments: no ST elevation ECG Findings: no PVCs Comparison ECG Date: from (November 12, 2019) Change: no significant change MDM Narrative I did evaluate the patient as noted above. He is presenting with intermittent chest pain since 11:00 this morning. He has a prior history of cardiac stent. He did take nitroglycerin earlier which helped his pain temporarily. IV access was established. I did treat him with nitroglycerin paste to the anterior chest wall. He did have aspirin earlier today. I did place an order for continuous cardiac monitoring. The monitor showed normal sinus rhythm at a rate of 68 bpm. I did order and personally review the patient's 12-lead EKG as described above. He has no acute ischemic changes. I did order and personally reviewed the images of the patient's chest x-ray as described above. I did order a urine analysis. I did order and review the patient's blood work as noted in the electronic medical record. CBC is unremarkable without leukocytosis or anemia. Electrolytes are unremarkable. LFTs are within normal limits. Troponin is negative. SARS testing is negative. I did reevaluate the patient. He stated that while he was here he developed some chest pressure but then it went away once he was given the nitroglycerin. He is symptom-free at this time. I did recommend hospitalization for further care and evaluation. I did discuss the case with the hospitalist and keycase assembler. Impression & Plan Acute chest pain Discharge Plan Visit Data Chief Complaint: Chest Pain Stated Complaint: CHEST PAIN, LIGHT HEADED, R ARM PAIM ED Provider: Kvng Mobley Discharge Problem: Acute chest pain Patient Disposition: Being Evaluated by Hospitalist Forms Stand Alone Forms: My [facility] Prescriptions Prescriptions: No Action (DME) Mikie Awad Misc See Rx Instructions .ROUTE .MEDSUPPLY Qty: 1 RF: 0 amoxicillin 500 mg tablet 2,000 mg PO ONCE Qty: 8 RF: 3 ofloxacin 0.3 % drops 5 drp otic (ear) BID 7 Days Qty: 10 RF: 0 methylprednisolone 4 mg tablets,dose pack See Rx Instructions .Route .COMPLEX Qty: 21 RF: 0 lisinopril 5 mg Tablet 5 mg PO QAM RF: 0 ezetimibe 10 mg Tablet 10 mg PO QAM RF: 0 cholecalciferol (vitamin D3) [Vitamin D3] 50 mcg (2,000 unit) Capsule 2,000 unit PO QAM RF: 0 metoprolol succinate 50 mg Tablet Extended Release 24 Hr 50 mg PO QAM RF: 0 lutein-zeaxanthin 20 mg- 1,000 mcg Capsule 2 cap PO QAM RF: 0 nitroglycerin 0.4 mg Tablet, Sublingual 0.4 mg sublingual DIRECTED PRN (Reason: Chest Pain) RF: 0 albuterol sulfate [ProAir HFA] 90 mcg/actuation Hfa Aerosol Inhaler 1 puff INHALATION Q6H PRN (Reason: ASTHMA) RF: 0 multivitamin Tablet 1 tab PO DAILY RF: 0 Referrals Referrals: Alicia Banerjee DO [Primary Care Provider] -
[2022-01-14 14:35] LABS: Basophils # (auto) 0.05 K/uL (0-0.2); Basophils % (auto) 0.6 %; Eosinophils # (auto) 0.12 K/uL (0-0.5); Eosinophils % (auto) 1.4 %; Hematocrit (blood only) 45.4 % (42-52); Hemoglobin 15.7 g/dL (14.0-18.0); Immature Granulocytes # (auto) 0.03 K/uL (0.00-0.02); Immature Granulocytes % (auto) 0.4 %; Lymphocytes # (auto) 2.21 K/uL (1.2-3.4); Mean Corpuscular Hgb Conc 34.6 g/dL (32-36); Mean Corpuscular Volume 86.8 fL (80-100); Mean Platelet Volume 10.4 fL (7.4-10.4); Monocytes # (auto) 0.42 K/uL (0.11-0.59); Monocytes % (auto) 4.9 %; Neutrophils # (auto) 5.67 K/uL (1.4-6.5); Neutrophils % (auto) 66.7 %; Platelet Count 177 K/uL (130-400); RDW Coefficient of Variation 14.6 % (11.5-14.5); RDW Standard Deviation 46.9 fL (36.4-46.3); Red Blood Count 5.23 M/uL (4.7-6.1)
--- NOTE | 2022-01-14 14:49 | XRay Report ---
XR chest 1V portable HISTORY: 66 years-old Male Chest Pain . Acute atypical chest pain COMPARISON: Chest radiograph 12/01/2019 TECHNIQUE: Portable AP view of the chest FINDINGS: Cardiac silhouette is enlarged. Lungs are mildly hypoinflated. Mild bibasilar densities. No pneumotho rax, large pleural effusion or overt pulmonary edema. Degenerative changes of the shoulders and spine . IMPRESSION: Hypoinflation with mild bibasilar atelectasis. ACT 112: Negative or not required by law. The above report was generated using voice recognition software. It may contain grammatical, syntax o r spelling errors. Electronically signed by: Fabian Cohen M.D. 01/14/2022 2:48 PM
[2022-01-14 14:55] LABS: Alanine Aminotransferase 25 U/L (7-52); Albumin Globulin Ratio 1.4 (0.9-2); Albumin Level 3.8 gm/dl (3.4-5.0); Alkaline Phosphatase 64 U/L (34-104); Anion Gap 7 (3-11); Aspartate Aminotransferase 17 U/L (13-39); BUN Creatinine Ratio 24.4 (10-20); Bilirubin,Total 0.7 mg/dl (0.2-1.0); Blood Urea Nitrogen 20 mg/dl (6-23); Calcium 8.7 mg/dl (8.5-10.1); Carbon Dioxide 25 mmol/L (21-32); Chloride 104 mmol/L (98-107); Est GFR (African American) 106.1 ml/min; Est GFR (Non-African American) 91.5 ml/min; Globulin 2.7 gm/dl (2.5-4.0); Glucose 157 mg/dl (70-99(Fasting)); Lipase 40 U/L (11-82); Potassium 3.9 mmol/L (3.5-5.1); Sodium 136 mmol/L (136-145); Total Protein 6.5 gm/dl (6.0-8.3)
[2022-01-14 14:58] LABS: Troponin I < 0.03 ng/ml (0-0.04)
--- NOTE | 2022-01-14 15:37 | History & Physical Report ---
Date of Service January 14, 2022 Assessment & Plan (1) Chest pain: (2) CAD (coronary artery disease): Plan: 66-year-old male with PMH CAD, H/O NSTEMI s/p ELVIE RCA x2 in 2014, ELVIE OM 2016, residual LAD disease managed medically, HTN, dyslipidemia, obesity presented to ER with complaint of chest pain today occurred while sitting relieved with 2 SL nitro. History dobutamine stress test in 2018 was negative for inducible ischemia Today In ER was having CP and nitro paste was applied and improved however reports intermittent episodes of chest discomfort throughout ER course, however not as intense as prior. Currently patient is chest pain free. EKG without acute ST elevation. Initial troponin negative Currently patient is chest pain-free R/O ACS Monitor Vitals Repeat EKG in am Will trend troponin Echo lipid panel in am, continue ezetimibe. Patient is not on statin Continue aspirin, metoprolol succinate- Nitropaste EKG if recurrent chest pain If patient has recurrent chest pain or has elevated troponins consider starting heparin Cardiology consult (3) HTN (hypertension): Plan: Continue lisinopril, metoprolol succinate (4) Dyslipidemia: Plan: Continue ezetimibe (5) Lipoma: Plan: Patient recently had lipoma to right upper back removed by Dr. Menezes. Is scheduled to have sutures removed 01/15/2022 Patient has 8 sutures to right upper back, wound edges appear well approximated without any surrounding erythema or edema or drainage Will need sutures removed DVT Prophylaxis Heparin SQ Full Code as per discussion with pt Follows with Dr Banerjee for routine care Pt was seen and care coordinated with Dr Ramos. See addendum History of Present Illness Chief Complaint: CP Primary Care Provider: Alicia Banerjee, 66-year-old male with PMH CAD, H/O NSTEMI s/p ELVIE RCA x2 in 2014, ELVIE OM 2016, residual LAD disease managed medically, HTN, dyslipidemia, obesity presented to ER with complaint of chest pain today. Patient states today was sitting in recliner when had onset of chest aching across top of chest and across neck at approx 11:30am today. Took one SL nitro without much relief and took second 15 minutes later with moderate relief. Got up to go to bathroom and felt dizzy. Has had CHERRY since taking nitro. Was feeling better and then approx 1230 developed aching across upper chest again and came to ER. Denies fever/chills, diaphoresis, N/V/D/C, syncope, vision changes, SOB, orthopnea, palpitations, cough, sore throat, choking, otalgia, rhinorrhea, abdominal pain, paresthesias, weakness, extremity weakness, extremity edema, rashes, urinary symptoms. History dobutamine stress test in 2018 was negative for inducible ischemia In ER was having CP and nitro paste was applied and improved however reports intermittent episodes of chest discomfort throughout ER course, however not as intense as prior. Currently patient is chest pain free. Allergies Allergy/AdvReac Type Severity Reaction Status Date / Time No Known Allergies Allergy Verified 01/14/22 15:17 Home Medications Medication Instructions Recorded Confirmed Type Wheeled Walker #1 ea 11/30/19 Rx albuterol sulfate 90 mcg/actuation 1 puff INHALATION Q6H PRN 11/30/19 01/14/22 History aerosol inhaler (ProAir HFA) cholecalciferol (vitamin D3) 50 2,000 unit PO QAM 11/30/19 01/14/22 History mcg (2,000 unit) capsule (Vitamin D3) ezetimibe 10 mg tablet 10 mg PO QAM 11/30/19 01/14/22 History lisinopril 5 mg tablet 5 mg PO QAM 11/30/19 01/14/22 History lutein 20 mg-zeaxanthin 1,000 mcg 2 cap PO QAM 11/30/19 01/14/22 History capsule metoprolol succinate 50 mg 50 mg PO QAM 11/30/19 01/14/22 History tablet,extended release 24 hr nitroglycerin 0.4 mg sublingual 0.4 mg SUBLINGUAL DIRECTED PRN 11/30/19 01/14/22 History tablet amoxicillin 500 mg tablet 2,000 mg PO ONCE #8 tab 01/27/21 01/14/22 Rx methylprednisolone 4 mg tablets in See Rx Instructions .ROUTE 08/01/21 01/14/22 Rx a dose pack .COMPLEX #21 ea ofloxacin 0.3 % ear drops 5 drp OTIC (EAR) BID 7 Days #10 ml 08/01/21 01/14/22 Rx multivitamin 1 tab PO DAILY 01/14/22 01/14/22 History Past Med/Surg History Medical History (Updated 01/14/22 @ 22:45 by Rachel Fermin PA-C) Asthma Using very rarely, less than once/year CAD (coronary artery disease) NSTEMI 08/16/15 s/p ELVIE x2 (overlapping) to the proximal and mid right coronary artery. Drug-eluting stent implanted to obtuse marginal vessel December 12, 2015 due to the exertional angina. Apical LAD disease managed medically. Dyslipidemia HTN (hypertension) Hx of Lyme disease Hx of myocardial infarction PRIOR TO FIRST CATH IN [place] 2014; TREATED AT [facility] Lipoma Obesity Osteoarthritis Right knee DJD Surgical History History of nasal surgery DEVIATED SEPTUM History of surgery on right wrist D/T TRAUMATIC SURGERY Hx of cardiac cath STENT X3 2014; AND STENT X1 2015 Hx of cholecystectomy Hx of colonoscopy Hx of tonsillectomy Hx of total ankle replacement LEFT Family History Father Family hx of colon cancer Social History (Updated 01/14/22 @ 22:43 by Rachel Fermin PA-C) Smoking Status: Former smoker Cigarettes Per Day: 1ppd x 6 years; Second Hand Exposure: Yes (OCCASSIONALLY); Hx Alcohol Use: Yes Alcohol type: beer Alcohol Intake Frequency: 2-4 x/Month Hx Substance Use: No Preferred Language: Occitan Communication Ability: Effective Visual Impairment: No Limitations Scarfer Operator Required: No Beliefs That Will Affect Care: None Current Living Situation: Spouse Feels Safe at Home: Yes Assistive Devices: None Review of Systems Review of Systems: All systems reviewed & are unremarkable except as noted in HPI & below Physical Exam Physical Exam: General: no distress, obese Head: normocephalic, atraumatic Eyes: PERRL, EOM's intact, conjunctiva non-injected, anicteric ENT: normal inspection external ears, nose, mucous membranes moist Neck: supple, trachea midline, non-tender Lungs: clear, no respiratory distress, no wheezing/rhonchi/rales CV: RRR, no JVD, no pretibial edema, mild tenderness to palpation left anterior chest, no skin disoloration noted Abd: normal BS, soft, non-tender Ext: no cyanosis, no calf tenderness Neuro: A&O x 3, no focal deficits noted, normal affect Skin: warm, dry Results & Data Results & Data ([facility]) Vital Signs (Past 12 Hours) Vital Signs Temp Pulse Resp BP Pulse Ox 01/14/22 14:34 96 01/14/22 14:30 65 18 119/73 96 01/14/22 14:26 67 18 01/14/22 14:10 36.7 C 70 18 130/76 96 Laboratory Results Short CBC 01/14/22 Range/Units 14:25 WBC 8.50 (4.8-10.8) K/uL Hgb 15.7 (14.0-18.0) g/dL Hct 45.4 (42-52) % Plt Count 177 (130-400) K/uL BMP 01/14/22 14:25 Sodium 136 Potassium 3.9 Chloride 104 Carbon Dioxide 25 BUN 20 Creatinine 0.82 Glucose 157 H Calcium 8.7 Cardiac Enzymes 01/14/22 01/14/22 Range/Units 14:25 20:07 Troponin I < 0.03 < 0.03 (0-0.04) ng/ml Liver Function 01/14/22 Range/Units 14:25 Total Bilirubin 0.7 (0.2-1.0) mg/dl AST 17 (13-39) U/L ALT 25 (7-52) U/L Alkaline Phosphatase 64 (34-104) U/L Albumin 3.8 (3.4-5.0) gm/dl Diagnostic Findings Chest X-Ray 01/14/22 14:22 XR chest 1V portable HISTORY: 66 years-old Male Chest Pain . Acute atypical chest pain COMPARISON: Chest radiograph 12/01/2019 TECHNIQUE: Portable AP view of the chest FINDINGS: Cardiac silhouette is enlarged. Lungs are mildly hypoinflated. Mild bibasilar densities. No pneumothorax, large pleural effusion or overt pulmonary edema. Degenerative changes of the shoulders and spine. IMPRESSION: Hypoinflation with mild bibasilar atelectasis. ACT 112: Negative or not required by law. The above report was generated using voice recognition software. It may contain grammatical, syntax or spelling errors. Electronically signed by: Fabian Cohen M.D. 01/14/2022 2:48 PM Supervising Physician Co-Signing Physician Notes Date of Service: January 14, 2022 Attending addendum: The patient was seen and examined in emergency room in presence of the He has significant CAD history of NSTEMI and is status post ELVIE in RCA x2 in 2015 and ELVIE OM in 2016 with known residual LAD disease with completion of course of Plavix apparently has been complaining of precordial pain at rest off and on with discomfort in the neck not significantly improved with nitro. He denies any other associated symptoms of nausea, vomiting, dizziness, palpitation, shortness of breath or sweating. His pain is reasonably controlled with Nitropaste and complains to have some headache On examination Lying in bed comfortably Hemodynamically stable Chestminimal crackles at the bases more on the left HeartS1, S2 regular, no murmur Abdomenbenign Extremitiestrace edema bilaterally CNSalert, awake and oriented x3 His admission labs, EKG and imaging studies reviewed Has chest pain with known history of CAD There is no EKG changes and initial troponin have been negative If chest pain is increased even on NTP,subsequent troponins are high or there is any EKG changes will need to start heparin We will get cardiology evaluation and keep him n.p.o. in the morning Continue his current medications including beta-awais, lisinopril, aspirin and Zetia Agree with assessment and plan as outlined above by OSMANY Castrejon Dr
--- NOTE | 2022-01-14 17:58 | Communication Note ---
Date of Service: January 14, 2022 Attending addendum: The patient was seen and examined in emergency room in presence of the He has significant CAD history of NSTEMI and is status post ELVIE in RCA x2 in 2015 and ELVIE OM in 2016 with known residual LAD disease with completion of course of Plavix apparently has been complaining of precordial pain at rest off and on with discomfort in the neck not significantly improved with nitro. He denies any other associated symptoms of nausea, vomiting, dizziness, palpitation, shortness of breath or sweating. His pain is reasonably controlled with Nitropaste and complains to have some headache On examination Lying in bed comfortably Hemodynamically stable Chestminimal crackles at the bases more on the left HeartS1, S2 regular, no murmur Abdomenbenign Extremitiestrace edema bilaterally CNSalert, awake and oriented x3 His admission labs, EKG and imaging studies reviewed Has chest pain with known history of CAD There is no EKG changes and initial troponin have been negative If chest pain is increased even on NTP,subsequent troponins are high or there is any EKG changes will need to start heparin We will get cardiology evaluation and keep him n.p.o. in the morning Continue his current medications including beta-awais, lisinopril, aspirin and Zetia Agree with assessment and plan as outlined above by OSMANY Castrejon Dr
[2022-01-14] MEDS: NITROGLYCERIN 2% OINTMENT 30GM TUBE EXT SCH (18:24)
[2022-01-14] MEDS: ACETAMINOPHEN 325 MG TAB PO PRN (19:56)
[2022-01-14] MEDS ORDERED: ALBUTEROL HFA 8 GM INHALER INH PRN (22:50)
[2022-01-14] MEDS ORDERED: MoRPHine SULFATE 2 MG/ML CARP IV STA (23:03)
[2022-01-15] MEDS: NITROGLYCERIN 2% OINTMENT 30GM TUBE EXT SCH ×3 (00:11→09:27)
[2022-01-15 02:41] LABS: Hematocrit (blood only) 43.4 % (42-52); Hemoglobin 14.9 g/dL (14.0-18.0); Mean Corpuscular Hemoglobin 29.8 pg (25-34); Mean Corpuscular Hgb Conc 34.3 g/dL (32-36); Mean Corpuscular Volume 86.8 fL (80-100); Mean Platelet Volume 10.4 fL (7.4-10.4); Platelet Count 183 K/uL (130-400); RDW Coefficient of Variation 14.6 % (11.5-14.5); RDW Standard Deviation 46.6 fL (36.4-46.3); White Blood Count 10.59 K/uL (4.8-10.8)
[2022-01-15 03:04] LABS: Troponin I < 0.03 ng/ml (0-0.04)
[2022-01-15 03:20] LABS: Anion Gap 6 (3-11); BUN Creatinine Ratio 23.7 (10-20); Blood Urea Nitrogen 22 mg/dl (6-23); Calcium 8.5 mg/dl (8.5-10.1); Carbon Dioxide 26 mmol/L (21-32); Chloride 103 mmol/L (98-107); Chol HDL Ratio 3.5 (0-5); Cholesterol 140 mg/dl (0-200); Creatinine Clr Calc Pharmacy 90.6 ml/min; Est GFR (African American) 98.1 ml/min; Est GFR (Non-African American) 84.6 ml/min; Glucose 99 mg/dl (70-99(Fasting)); HDL Cholesterol 40 mg/dl; LDL Cholesterol Calculated 74 mg/dl; Potassium 4.1 mmol/L (3.5-5.1); Sodium 135 mmol/L (136-145); Triglycerides 129 mg/dl (0-150); VLDL Cholesterol 26 mg/dl (0-30)
[2022-01-15] MEDS ORDERED: HEPARIN SOD 5,000 UNIT/0.5 ML VIAL SQ SCH (06:00)
[2022-01-15] MEDS: CHOLECALCIFEROL 1,000 UNITS 25 MCG TAB PO SCH (08:24)
[2022-01-15] MEDS: EZETIMIBE 10 MG TABLET PO SCH (08:24)
[2022-01-15] MEDS: lisinopril 5 MG TAB PO SCH (08:24)
[2022-01-15] MEDS: METOPROLOL SUCC 50MG EXT REL TAB PO SCH (08:24)
[2022-01-15] MEDS ORDERED: MoRPHine SULFATE 2 MG/ML CARP IV STA ×2 (08:50→09:08)
[2022-01-15] MEDS ORDERED: NON-FORMULARY MEDICATION (Lutein-Zeaxanthin 20 mg- 1,000 mcg Capsule) PO SCH (09:00)
[2022-01-15] MEDS ORDERED: Heparin IV Adult Wt-Based Standard WITH Bolus Protocol IV STA (09:10)
[2022-01-15] MEDS: ACETAMINOPHEN 325 MG TAB PO PRN (09:26)
[2022-01-15] MEDS ORDERED: HEPARIN SODIUM/DEXTROSE 25,000 UNITS/500 ML BAG IV SCH (09:30)
[2022-01-15] MEDS ORDERED: HEPARIN SOD (PORCINE) 1000 UNIT/ML IV ONE (09:45)
--- NOTE | 2022-01-15 09:47 | Cardiology Consultation ---
Date of Consultation January 15, 2022 Assessment & Plan (1) Unstable angina: (2) CAD (coronary artery disease): (3) HTN (hypertension): (4) Dyslipidemia: 66-year-old patient presents with symptoms concerning for unstable angina with throat and jaw discomfort (similar to prior angina). Intermittent discomfort reported overnight. Preliminary review of bedside 2D transthoracic echocardiogram without regional wall motion abnormality. Recommend intravenous heparin. Replace topical nitrates that were removed for echocardiogram. Risk versus benefit of cardiac catheterization discussed. Patient agreeable. We will proceed with coronary angiography and left heart catheterization today. He will be taken to the cardiac catheterization lab urgently with any ECG changes or refractory chest/throat discomfort. Coronary angiography films from 2016 will be reviewed prior to procedure. History of Present Illness Reason for Consultation: angina Requesting Physician: Dr. Christianson Attending Physician: Ivory Ramos MD History of Present Illness 66-year-old patient presented emergency department with chest, throat, and jaw discomfort. Patient in his normal state of health in the a.m. 01/14/2022. After breakfast he began to notice substernal and left-sided chest discomfort. The discomfort radiated to his throat and jaw. After approximately 15 minutes he took 1 sublingual nitroglycerin without relief. He took a second sublingual nitroglycerin which induced headache. He proceeded to the emergency department, however, in route, symptoms resolved. His then drove to the grocery store. After approximately 1 hour symptoms recurred while at rest. He then proceeded to the ER for further evaluation and treatment. Cardiac enzymes undetectable. ECG with inferior T wave abnormality. Nitropaste removed for echocardiogram. During the study, patient's chest and jaw discomfort recurred. Previous anginal symptoms included throat and jaw pain. States symptoms are very similar to prior myocardial infarction from . Denies any recent exertional angina or unusual shortness of breath. Functional capacity/exercise limited by left ankle pain. Recent surgery performed in 2020. Compliant with all cardiovascular medications listed below. Offers no other concerns/complaints. Allergies Allergy/AdvReac Type Severity Reaction Status Date / Time No Known Allergies Allergy Verified 01/14/22 15:17 Home Medications Medication Instructions Recorded Confirmed Type Wheeled Walker #1 ea 11/30/19 Rx albuterol sulfate 90 mcg/actuation 1 puff INHALATION Q6H PRN 11/30/19 01/14/22 History aerosol inhaler (ProAir HFA) cholecalciferol (vitamin D3) 50 2,000 unit PO QAM 11/30/19 01/14/22 History mcg (2,000 unit) capsule (Vitamin D3) ezetimibe 10 mg tablet 10 mg PO QAM 11/30/19 01/14/22 History lisinopril 5 mg tablet 5 mg PO QAM 11/30/19 01/14/22 History lutein 20 mg-zeaxanthin 1,000 mcg 2 cap PO QAM 11/30/19 01/14/22 History capsule metoprolol succinate 50 mg 50 mg PO QAM 11/30/19 01/14/22 History tablet,extended release 24 hr nitroglycerin 0.4 mg sublingual 0.4 mg SUBLINGUAL DIRECTED PRN 11/30/19 01/14/22 History tablet methylprednisolone 4 mg tablets in See Rx Instructions .ROUTE 08/01/21 01/14/22 Rx a dose pack .COMPLEX #21 ea ofloxacin 0.3 % ear drops 5 drp OTIC (EAR) BID 7 Days #10 ml 08/01/21 01/14/22 Rx multivitamin 1 tab PO DAILY 01/14/22 01/14/22 History pantoprazole 40 mg tablet,delayed 40 mg PO QAM 30 Days #30 tab 01/16/22 Rx release Patient History Medical History Asthma Using very rarely, less than once/year CAD (coronary artery disease) NSTEMI 08/16/15 s/p ELVIE x2 (overlapping) to the proximal and mid right coronary artery. Drug-eluting stent implanted to obtuse marginal vessel December 12, 2015 due to the exertional angina. Apical LAD disease managed medically. Dyslipidemia HTN (hypertension) Hx of Lyme disease Hx of myocardial infarction PRIOR TO FIRST CATH [place]; TREATED AT [facility] Lipoma Obesity Osteoarthritis Right knee DJD Surgical History History of nasal surgery DEVIATED SEPTUM History of surgery on right wrist D/T TRAUMATIC SURGERY Hx of cardiac cath STENT X3 2014; AND STENT X1 2015 Hx of cholecystectomy Hx of colonoscopy Hx of tonsillectomy Hx of total ankle replacement LEFT Family History Father Family hx of colon cancer Social History Smoking Status: Former smoker Cigarettes Per Day: 1ppd x 6 years; Second Hand Exposure: Yes (OCCASSIONALLY); Hx Alcohol Use: Yes Alcohol type: beer Alcohol Intake Frequency: 2-4 x/Month Hx Substance Use: No Preferred Language: Bahraini Communication Ability: Effective Visual Impairment: No Limitations Paper Cone Grader Required: No Beliefs That Will Affect Care: None Current Living Situation: Spouse Feels Safe at Home: Yes Assistive Devices: None Review of Systems Review of Systems: All systems reviewed & are unremarkable except as noted in Subjective Physical Exam Constitutional: well nourished and + obese; no acute distress and not ill appearing Respiratory: no respiratory distress, no labored breathing and no retractions Cardiovascular: Rate/Rhythm: regular rate and regular rhythm Heart Sounds: normal S1 and normal S2; no murmur Vessels: radial pulses present; no JVD and no carotid bruit Extremities: no edema Gastrointestinal (Abdomen): Inspection/Auscultation: abdomen normal to inspection and normal bowel sounds; abdomen not distended Percussion/Palpation: abdomen soft; abdomen nontender, no guarding and abdomen not rigid Neurologic: CN's II-XI intact bilaterally and moves all extremities; no focal motor deficits Motor/Sensory: no tremor Psychiatric: A+Ox3, euthymic affect Results & Data ([facility]) Vital Signs (Past 12 Hours) Vital Signs Temp Pulse Pulse Resp BP Pulse Ox 01/15/22 07:50 37.0 C 67 18 123/71 94 01/15/22 07:19 74 01/15/22 04:02 36.8 C 74 20 102/66 93 01/14/22 23:59 63 01/14/22 23:13 36.9 C 65 18 134/72 96
[2022-01-15 09:57] LABS: Partial Thromboplastin Ratio 1.1; Partial Thromboplastin Time 29.1 Seconds (21.0-31.0); Prothrombin Time 10.6 Seconds (9.0-12.0)
--- NOTE | 2022-01-15 10:21 | Electrocardiogram Report ---
Test Reason : Blood Pressure : / mmHG Vent. Rate : 063 BPM Atrial Rate : 063 BPM P-R Int : 182 ms QRS Dur : 114 ms QT Int : 402 ms P-R-T Axes : -07 -30 -02 degrees QTc Int : 411 ms Normal sinus rhythm Left axis deviation Abnormal ECG When compared with ECG of 27-MAR-2018 19:59, No significant change was found Confirmed by Stephen Parks ([id number]) on 01/15/2022 10:21:02 AM Referred By: REFERRED SELF Confirmed By:Afshin Parks
--- NOTE | 2022-01-15 10:32 | Electrocardiogram Report ---
Test Reason : Blood Pressure : / mmHG Vent. Rate : 067 BPM Atrial Rate : 067 BPM P-R Int : 182 ms QRS Dur : 108 ms QT Int : 416 ms P-R-T Axes : 031 -42 005 degrees QTc Int : 439 ms Normal sinus rhythm Left axis deviation Abnormal ECG When compared with ECG of 14-JAN-2022 14:21, (unconfirmed) Minimal criteria for Anterior infarct are no longer Present Confirmed by Stephen Parks ([id number]) on 01/15/2022 10:32:48 AM Referred By: REFERRED SELF Confirmed By:Afshin Parks
[2022-01-15] MEDS ORDERED: MIDAZOLAM HCL 1 MG/ML 2ML VIAL ONE (11:17)
[2022-01-15] MEDS ORDERED: HEPARIN (PORCINE) 1000 UNIT/ML 10 ML (CATH LAB USE ONLY) ONE (11:17)
[2022-01-15] MEDS ORDERED: niCARdipine HCL INJ 2.5 MG/ML 10 ML AMP ONE (11:17)
[2022-01-15] MEDS ORDERED: NITROGLYCERIN/D5W 100MCG/ML 20ML SYR ONE (11:18)
[2022-01-15] MEDS ORDERED: fentaNYL citrate 100 MCG/2 ML VIAL ONE (11:18)
[2022-01-15] MEDS ORDERED: LIDOCAINE 1% LOCAL 20 ML VIAL ONE ×2 (11:30→11:31)
--- NOTE | 2022-01-15 12:47 | Pre Anesthesia Assessment ---
Date of Service January 15, 2022 Pre Sedation Assessment Vital Signs Temp Pulse Pulse Pulse Resp BP BP 01/16/22 13:20 36.9 C 67 64 18 124/66 01/16/22 08:00 74 18 01/16/22 07:25 80 18 126/71 01/16/22 06:45 68 11 L 01/16/22 04:00 36.9 C 67 12 01/16/22 00:00 36.9 C 62 14 01/15/22 20:00 36.9 C 18 124/66 01/15/22 15:39 36.9 C 70 18 130/73 01/15/22 15:20 64 18 119/72 01/15/22 15:05 69 18 121/71 01/15/22 14:50 56 L 18 129/75 01/15/22 14:35 55 L 18 126/75 01/15/22 14:20 56 L 21 128/68 01/15/22 14:05 64 21 116/68 BP Pulse Ox 01/16/22 13:20 114/60 96 01/16/22 08:00 01/16/22 07:25 96 01/16/22 06:45 01/16/22 04:00 114/60 97 01/16/22 00:00 143/71 H 95 01/15/22 20:00 97 01/15/22 15:39 97 01/15/22 15:20 96 01/15/22 15:05 96 01/15/22 14:50 95 01/15/22 14:35 94 01/15/22 14:20 96 01/15/22 14:05 93 Cardiovascular RRR, no murmur, no edema Pre-Sedation Airway Assessment Smoking Status: Former smoker Hx Sleep Apnea: No Short, Thick Neck: No Thyromental Distance: > or= 3.5 Finger Breadths Oral Cavity: + WNL Mallampati Class: III ASA: ASA2 NPO Status Date of Last Intake of Fluids: 01/15/22 Time of Last Intake of Fluids: 11:00 Date of Last Intake of Solid Food: 01/14/22 Time of Last Intake of Solid Foods: 17:30 Procedure Planning Contraindications for Sedation: none Current Medications Reviewed: Yes Notes The planned sedation has been discussed with the patient. Informed Consent was obtained. I have identified the patient, determined the appropriateness of sedation and have assessed the patient immediately prior to the procedure. All medicine(s) and interventions are by my order.
--- NOTE | 2022-01-15 13:00 | Cardiac Catheterization ---
Cardiac Cath Procedure Full Procedure Date January 15, 2022 Pre-Procedure Diagnosis Pre-Procedure Diagnosis: Angina, CAD and Cardiothoracic Symptom AUC Score AUC Score: 7 Post-Procedure Diagnosis Post-Procedure Diagnosis: Moderate CAD (Patent RCA and OM stent) and Normal Intracardiac Pressures Procedure(s) Performed Procedure(s) Performed: Coronary Angiography and Left Heart Cath Manager Clinical Research Kvng Fox DO Geothermal Production Manager(s) Electric Track Switch Maintainer GANG KNIFE FISH CHOPPER Estimated Blood Loss Estimated Blood Loss: 5cc Medication(s) Medication(s): Fentanyl, Heparin, Lidocaine 1%, Nicardipine, Nitroglycerin and Versed Summary of Findings Moderate coronary disease. Patent OM and RCA stents. Hemodynamics Rest Ao:: 92/52/70 Final Ao: 103/55/75 LV: 101/-2/6 Recommendations Recommendations: Medical Therapy and/or Counseling Specimens Specimens: None Radiation Exposure (mGy) 2559 Contrast (mls) 110 Fluids (cc crystalloids) Fluids (cc crystalloids): 130 Nss Drains Drains: N/A Anesthesia Moderate sedation. Start 1154. End 1243. Sedation monitor Gopal JIMENEZ. Procedural Complication(s) None Disposition Interdisciplinary Professor Holding/Recovery I attest to the content of the Intraoperative Record and any orders documented therein. Any exceptions are noted below. ACC Data: Interdisciplinary Professor Cardiac Status Clinical evaluation leading to the procedure 66-year-old patient presented to the emergency department with chest discomfort radiating to his jaw and throat similar to prior angina. Due to the typical nature of his discomfort, cardiac catheterization recommended. CAD Presenation: Unstable angina Anginal Classification: CCS IV Heart Failure: No Cardiogenic Shock within 24 Hours: No Imaging Studies Past 6 Months: Yes Stress Studies Past 6 Months: No Coronary Anatomy Dominant: Right Left Main (% Stenosis): Normal LAD (% Stenosis): Proximal (10%), Mid (30% diffuse with moderate to severe calcification) and Distal (70% Apical) D1 (% Stenosis): Proximal (20%) D2 (% Stenosis): Proximal (40%) D3 (% Stenosis): Mid (80% small 1mm vessel) Circumflex (% Stenosis): Proximal (10%) OM1 (% Stenosis): Proximal (patent stent) RCA (% Stenosis): Proximal (20%) and Mid (30% ISR followed by 30% stenosis, followed by 20% diffuse) R PDA (% Stenosis): Normal R PL1 (% Stenosis): Normal Diagnostic Physicians Name: Kvng Fox DO Closure Device Recommendations: Medical Therapy and/or Counseling
--- NOTE | 2022-01-15 13:54 | Hospitalist Progress Note ---
Date of Service January 15, 2022 Assessment & Plan (1) Chest pain: (2) CAD (coronary artery disease): Plan: 66-year-old male with PMH CAD, H/O NSTEMI s/p ELVIE RCA x2 in 2014, ELVIE OM 2016, residual LAD disease managed medically, HTN, dyslipidemia, obesity presented to ER with complaint of chest pain today occurred while sitting relieved with 2 SL nitro. History dobutamine stress test in 2018 was negative for inducible ischemia Today In ER was having CP and nitro paste was applied and improved however reports intermittent episodes of chest discomfort throughout ER course, however not as intense as prior. Currently patient is chest pain free. EKG without acute ST elevation. Initial and subsequent troponins were negative Complained of occasional chest pain and required intravenous morphine very small dose Maxi EKG was unremarkable lipid panel-was unremarkable, continue ezetimibe. Patient is not on statin Continue aspirin, metoprolol succinate- Nitropaste continued for ongoing chest pain Appreciate cardiology input and recommendation Status post cardiac cath which showed moderate CAD (patent RCA and OM stent) and normal intracardiac pressures Continue with medical management-no further adjustment of medications Will be discharged home this afternoon Recent left ankle pain with some swelling He has been getting tapered dose of steroid We will continue as an outpatient (3) HTN (hypertension): Plan: Continue lisinopril, metoprolol succinate (4) Dyslipidemia: Plan: Continue ezetimibe (5) Lipoma: Plan: Patient recently had lipoma to right upper back removed by Dr. Menezes. Is scheduled to have sutures removed 01/15/2022 Patient has 8 sutures to right upper back, wound edges appear well approximated without any surrounding erythema or edema or drainage Will need sutures removed-we will remove the stitches DVT Prophylaxis Heparin SQ Full Code as per discussion with pt Follows with Dr Banerjee for routine care Will be discharged home this afternoon Admission and Anticipated Discharge Date Admission Date: January 14, 2022 Subjective 01/15/2022 The patient was seen and examined in medical telemetry unit He continues to have chest pain without any other significant symptoms He is status post unremarkable cardiac cath given history of cardiac stents He will be discharged home this afternoon Review of Systems Review of Systems: All systems reviewed and are unremarkable except as noted below Cardiovascular: Additional Comments: Continues to have minimal chest pain Physical Exam Physical Exam: Lying in bed comfortably Constitutional: well developed, well nourished and + obese; not ill appearing Eyes: PERRL, conjunctivae normal, anicteric sclerae ENMT: external ear and nose normal, oropharynx normal Neck: trachea midline, no thyromegaly Respiratory: no respiratory distress Auscultation: lungs clear to auscultation bilaterally Cardiovascular: Rate/Rhythm: regular rate and regular rhythm; not tachycardic Heart Sounds: normal S1 and normal S2; no murmur Extremities: + edema (Trace edema bilaterally) Gastrointestinal (Abdomen): Inspection/Auscultation: normal bowel sounds; abdomen not distended Percussion/Palpation: abdomen soft; abdomen nontender Musculoskeletal: Minimal pain left ankle Neurologic: Alert, awake and oriented x3 Results & Data Results & Data ([facility]) Vital Signs (Past 12 Hours) Vital Signs Temp Pulse Pulse Resp BP BP Pulse Ox 01/15/22 13:35 55 L 19 135/73 94 01/15/22 13:20 59 L 20 135/73 95 01/15/22 13:05 68 18 101/74 96 01/15/22 12:50 62 18 118/67 98 01/15/22 08:20 70 19 128/71 95 01/15/22 07:50 37.0 C 67 18 123/71 94 01/15/22 07:19 74 01/15/22 04:02 36.8 C 74 20 102/66 93 Laboratory Results Short CBC 01/14/22 01/15/22 Range/Units 14:25 02:25 WBC 8.50 10.59 (4.8-10.8) K/uL Hgb 15.7 14.9 (14.0-18.0) g/dL Hct 45.4 43.4 (42-52) % Plt Count 177 183 (130-400) K/uL BMP 01/14/22 01/15/22 14:25 02:25 Sodium 136 135 L Potassium 3.9 4.1 Chloride 104 103 Carbon Dioxide 25 26 BUN 20 22 Creatinine 0.82 0.93 Glucose 157 H 99 Calcium 8.7 8.5 Cardiac Enzymes 01/14/22 01/14/22 01/15/22 Range/Units 14:25 20:07 02:25 Troponin I < 0.03 < 0.03 < 0.03 (0-0.04) ng/ml Liver Function 01/14/22 Range/Units 14:25 Total Bilirubin 0.7 (0.2-1.0) mg/dl AST 17 (13-39) U/L ALT 25 (7-52) U/L Alkaline Phosphatase 64 (34-104) U/L Albumin 3.8 (3.4-5.0) gm/dl Medications Administered Current Inpatient Medications Acetaminophen (Acetaminophen 325 Mg Tab) 650 mg PO Q4H PRN PRN Reason: Pain or Fever Stop: 02/13/22 17:57 Last Admin: 01/15/22 09:26 Dose: 650 mg Documented by: Albuterol (Albuterol Hfa 8 Gm Inhaler) 1 puffs INH Q6H PRN PRN Reason: ASTHMA Stop: 02/13/22 22:49 Ezetimibe (Ezetimibe 10 Mg Tablet) 10 mg PO [facility] Stop: 02/14/22 08:59 Last Admin: 01/15/22 08:24 Dose: 10 mg Documented by: Heparin Sodium/Dextrose (Heparin Sodium/Dextrose) 25,000 units in 500 mls @ 0 m ls/hr IV .Q0M [facility]; Protocol Stop: 02/14/22 09:29 Last Titration: 01/15/22 11:01 Dose: 0 units/hr, 0 mls/hr Documented by: Lisinopril (Lisinopril 5 Mg Tab) 5 mg PO [facility] Stop: 02/14/22 08:59 Last Admin: 01/15/22 08:24 Dose: 5 mg Documented by: Metoprolol Succinate (Metoprolol Succ 50mg Ext Rel Tab) 50 mg PO [facility] Stop: 02/14/22 08:59 Last Admin: 01/15/22 08:24 Dose: 50 mg Documented by: Nitroglycerin (Nitroglycerin 2% Ointment 30gm Tube) 0.5 inch EXT Q6H [facility] Stop: 02/13/22 17:59 Last Admin: 01/15/22 09:27 Dose: 0.5 inch Documented by: Vitamin D (Cholecalciferol 1,000 Units 25 Mcg Tab) 2,000 units PO [facility] Stop: 02/14/22 08:59 Last Admin: 01/15/22 08:24 Dose: 2,000 units Documented by:
--- NOTE | 2022-01-15 14:33 | Post Anesthesia Assessment ---
Date of Service January 15, 2022 Post Sedation Assessment Vital Signs Temp Pulse Pulse Pulse Resp BP BP 01/16/22 13:20 36.9 C 67 64 18 124/66 01/16/22 08:00 74 18 01/16/22 07:25 80 18 126/71 01/16/22 06:45 68 11 L 01/16/22 04:00 36.9 C 67 12 01/16/22 00:00 36.9 C 62 14 01/15/22 20:00 36.9 C 18 124/66 01/15/22 15:39 36.9 C 70 18 130/73 01/15/22 15:20 64 18 119/72 01/15/22 15:05 69 18 121/71 01/15/22 14:50 56 L 18 129/75 01/15/22 14:35 55 L 18 126/75 01/15/22 14:20 56 L 21 128/68 01/15/22 14:05 64 21 116/68 BP Pulse Ox 01/16/22 13:20 114/60 96 01/16/22 08:00 01/16/22 07:25 96 01/16/22 06:45 01/16/22 04:00 114/60 97 01/16/22 00:00 143/71 H 95 01/15/22 20:00 97 01/15/22 15:39 97 01/15/22 15:20 96 01/15/22 15:05 96 01/15/22 14:50 95 01/15/22 14:35 94 01/15/22 14:20 96 01/15/22 14:05 93 Recovery Score Respiration: Deep Breath/Cough Circulation: +/-20% PreAnes Value Consciousness: Fully Awake Oxygen Saturation: > 92% On Room Air Discharge Sedation Level of Care: Phase I Post Sedation Plan On clinical assessment, the patient appears to have tolerated the sedation without complications. Patient is recovering as anticipated. Patient will continue to be monitored by nursing and may be discharged when sedation discharge criteria are met per below protocol. Upon Completions of procedure up to 15 minutes continue every 5 minute vital signs and the P.A.R. score; then discharge to a Phase I or Fast Track to Phase II per the following guidelines: * Discharge Patient to appropriate Phase II area if PAR is 8 or greater or return to pre- procedure baseline. The post - procedure orders will be as directed. * If PAR score is less than 8 or not return to pre-procedure baseline then patient will follow Phase I monitoring till PAR is reached for Phase II. The Phase I may be done in procedure room or may call to secure a Phase I area. * If naloxone or flumazenil are used for reversal, hold in Phase I for continued monitoring from when last reversal dose was given for a minimum of 60 minutes or longer pending the nurse and/or physician discretion of patient condition before discharge to Phase II. Please call the Sedation Physician to re-evaluate and complete post-note for discharge to Phase II area. Do NOT discharge from procedure sedation or Phase 1 until post- sedation evaluation note is complete by procedure /sedation MD Sedation Discharge Instructions to be given to the patient at discharge to home.
[2022-01-15] MEDS ORDERED: ALUMINUM/MAGNESIUM SUSP 30 ML UDC PO STA (16:03)
[2022-01-15] MEDS: PANTOprazole 40 MG TAB PO SCH (17:45)
[2022-01-16 05:57] LABS: Basophils # (auto) 0.02 K/uL (0-0.2); Basophils % (auto) 0.3 %; Eosinophils # (auto) 0.22 K/uL (0-0.5); Eosinophils % (auto) 3.1 %; Immature Granulocytes # (auto) 0.03 K/uL (0.00-0.02); Immature Granulocytes % (auto) 0.4 %; Lymphocytes # (auto) 2.16 K/uL (1.2-3.4); Lymphocytes % (auto) 30.3 %; Mean Corpuscular Hemoglobin 30.1 pg (25-34); Mean Corpuscular Hgb Conc 34.8 g/dL (32-36); Mean Corpuscular Volume 86.6 fL (80-100); Mean Platelet Volume 10.7 fL (7.4-10.4); Monocytes % (auto) 9.8 %; Neutrophils % (auto) 56.1 %; Platelet Count 163 K/uL (130-400); RDW Coefficient of Variation 14.7 % (11.5-14.5); RDW Standard Deviation 46.4 fL (36.4-46.3); Red Blood Count 5.31 M/uL (4.7-6.1); White Blood Count 7.13 K/uL (4.8-10.8)
[2022-01-16 06:05] LABS: Partial Thromboplastin Ratio 1.2; Partial Thromboplastin Time 30.4 Seconds (21.0-31.0)
[2022-01-16 06:20] LABS: BUN Creatinine Ratio 22.7 (10-20); Calcium 8.3 mg/dl (8.5-10.1); Creatinine Clr Calc Pharmacy 127.1 ml/min; Magnesium 2.1 mg/dl (1.7-2.4); Potassium 3.9 mmol/L (3.5-5.1)
[2022-01-16] MEDS: EZETIMIBE 10 MG TABLET PO SCH (07:23)
[2022-01-16] MEDS: PANTOprazole 40 MG TAB PO SCH (07:23)
[2022-01-16] MEDS: lisinopril 5 MG TAB PO SCH (07:23)
[2022-01-16] MEDS: METOPROLOL SUCC 50MG EXT REL TAB PO SCH (07:23)
[2022-01-16] MEDS: CHOLECALCIFEROL 1,000 UNITS 25 MCG TAB PO SCH (07:24)
--- NOTE | 2022-01-16 09:37 | Gastrointestinal Consultation ---
Date of Consultation January 16, 2022 Assessment & Plan (1) Non-cardiac chest pain: Daily po PPI. Will plan for OP EGD soon. Our office will call to arrange. No GI contraindication to regular diet and discharge. Supervising Physician Co-Signing Physician Notes Attending attestation I have seen, examined this patient, and agree with the findings and above by our mid-level provider MARC Branham, with the following additions: Throat and mild chest heaviness, non intervenable Cath Daily PPI Arrange close in EGD as outpatient History of Present Illness Reason for Consultation: Dyspepsia,worried about central chest and throat discomfort Requesting Physician: Dr. Ramos Attending Physician: Ivory Ramos MD History of Present Illness Mr. Choco Renteria is a 66 yr old male pt of Dr. Banerjee with a hx of HTN, CAD, H/O NSTEMI s/p stenting and residual LAD disease managed medically who experienced a sudden onset of upper chest and neck pressure feeling like somebody was pressing his Kenny's apple, on Saturday. This is exactly the same symptoms he had when he experienced heart attack previously. He presented to the emergency department. He underwent thorough cardiac evaluation including cardiac catheterization without evidence of cardiac cause of his pain. GI is consulted to consider GERD. The patient denies any history of having ever had any reflux symptoms though he does recall may be feeling some mild burning discomfort and feeling of reflux once every few months. He has never been on medication for reflux. No hx of prior EGD. He does not have any difficulty swallowing. No black stools. No abdominal pain. He specifies that this chest and throat pain is not a burning, it is a pressure. Currently mild throat/neck and upper chest pressure. He is hemodynamically. Allergies Allergy/AdvReac Type Severity Reaction Status Date / Time No Known Allergies Allergy Verified 01/14/22 15:17 Home Medications Medication Instructions Recorded Confirmed Type Wheeled Walker #1 ea 11/30/19 Rx albuterol sulfate 90 mcg/actuation 1 puff INHALATION Q6H PRN 11/30/19 01/14/22 History aerosol inhaler (ProAir HFA) cholecalciferol (vitamin D3) 50 2,000 unit PO QAM 11/30/19 01/14/22 History mcg (2,000 unit) capsule (Vitamin D3) ezetimibe 10 mg tablet 10 mg PO QAM 11/30/19 01/14/22 History lisinopril 5 mg tablet 5 mg PO QAM 11/30/19 01/14/22 History lutein 20 mg-zeaxanthin 1,000 mcg 2 cap PO QAM 11/30/19 01/14/22 History capsule metoprolol succinate 50 mg 50 mg PO QAM 11/30/19 01/14/22 History tablet,extended release 24 hr nitroglycerin 0.4 mg sublingual 0.4 mg SUBLINGUAL DIRECTED PRN 11/30/19 01/14/22 History tablet methylprednisolone 4 mg tablets in See Rx Instructions .ROUTE 08/01/21 01/14/22 Rx a dose pack .COMPLEX #21 ea ofloxacin 0.3 % ear drops 5 drp OTIC (EAR) BID 7 Days #10 ml 08/01/21 01/14/22 Rx multivitamin 1 tab PO DAILY 01/14/22 01/14/22 History pantoprazole 40 mg tablet,delayed 40 mg PO QAM 30 Days #30 tab 01/16/22 Rx release Patient History Medical History Asthma Using very rarely, less than once/year CAD (coronary artery disease) NSTEMI 08/16/15 s/p ELVIE x2 (overlapping) to the proximal and mid right coronary artery. Drug-eluting stent implanted to obtuse marginal vessel December 12, 2015 due to the exertional angina. Apical LAD disease managed medically. Dyslipidemia HTN (hypertension) Hx of Lyme disease Hx of myocardial infarction PRIOR TO FIRST CATH IN [place] 2014; TREATED AT [facility] Lipoma Obesity Osteoarthritis Right knee DJD Surgical History History of nasal surgery DEVIATED SEPTUM History of surgery on right wrist D/T TRAUMATIC SURGERY Hx of cardiac cath STENT X3 2014; AND STENT X1 2015 Hx of cholecystectomy Hx of colonoscopy Hx of tonsillectomy Hx of total ankle replacement LEFT Family History Father Family hx of colon cancer Social History Smoking Status: Former smoker Cigarettes Per Day: 1ppd x 6 years; Second Hand Exposure: Yes (OCCASSIONALLY); Hx Alcohol Use: Yes Alcohol type: beer Alcohol Intake Frequency: 2-4 x/Month Hx Substance Use: No Preferred Language: Icelandic Communication Ability: Effective Visual Impairment: No Limitations Architectural Technician Required: No Beliefs That Will Affect Care: None Current Living Situation: Spouse Feels Safe at Home: Yes Assistive Devices: None Review of Systems Review of Systems: ROS: Gen: Denies weakness, fevers, weight loss Eyes: No eye redness, or pain, no recent vision changes Resp: No SOB, no cough Cardio: As per HPI, otherwise (-) GI: Denies any abdominal pain. He does carry a hx of IBS and has some intermittent diarrhea. : Denies pain on urination Skin: No jaundice, itching or new rashes Physical Exam Constitutional: well developed and cooperative Eyes: PERRL, conjunctivae normal, anicteric sclerae Respiratory: normal respiratory effort, lungs clear to auscultation Cardiovascular: RRR, no murmur, no edema Gastrointestinal (Abdomen): normal bowel sounds, soft, nontender, no hepatosplenomegaly Skin: no rashes, warm and dry normal turgor Neurologic: PERRL, EOMI, accommodation nl, no face palsy, no dysarthria awake; not confused Psychiatric: A+Ox3, euthymic affect Results & Data ([facility]) Vital Signs (Past 12 Hours) Vital Signs Temp Pulse Resp BP Pulse Ox 01/16/22 04:00 36.9 C 67 12 114/60 97 01/16/22 00:00 36.9 C 62 14 143/71 H 95 Laboratory Results WBC 7, Hb 16, HCT 46, PLT S163, INR 1.2, NA 136, K3.9, CL 105, CO2 26, BUN 15, CR 0.66, glucose 9 0. Diagnostic Findings CXR: Hypoinflation with mild bibasilar atelectasis.
--- NOTE | 2022-01-16 12:39 | Hospitalist Progress Note ---
Date of Service January 16, 2022 Assessment & Plan (1) Chest pain: Plan: No ACS any status post cardiac cath as below. Has been complaining of upper central chest/throat pain for some time Concern about dyspepsia/peptic ulcer disease Has been getting reducing dose of steroid for left ankle pain and swelling and is on aspirin Appreciate GI input and recommendation Has been put on PPI and will be discharged home this afternoon He will have GI follow-up and possible EGD as an outpatient (2) CAD (coronary artery disease): Plan: 66-year-old male with PMH CAD, H/O NSTEMI s/p ELVIE RCA x2 in 2014, ELVIE OM 2016, residual LAD disease managed medically, HTN, dyslipidemia, obesity presented to ER with complaint of chest pain today occurred while sitting relieved with 2 SL nitro. History dobutamine stress test in 2018 was negative for inducible ischemia Today In ER was having CP and nitro paste was applied and improved however reports intermittent episodes of chest discomfort throughout ER course, however not as intense as prior. Currently patient is chest pain free. EKG without acute ST elevation. Initial and subsequent troponins were negative Complained of occasional chest pain and required intravenous morphine very small dose Maxi EKG was unremarkable lipid panel-was unremarkable, continue ezetimibe. Patient is not on statin Continue aspirin, metoprolol succinate- Nitropaste continued for ongoing chest pain Appreciate cardiology input and recommendation Status post cardiac cath which showed moderate CAD (patent RCA and OM stent) and normal intracardiac pressures Continue with medical management-no further adjustment of medications Denies any more chest pain and/or palpitation Remains stable and will be sent home this afternoon Recent left ankle pain with some swelling He has been getting tapered dose of steroid We will continue as an outpatient (3) HTN (hypertension): Plan: Continue lisinopril, metoprolol succinate (4) Dyslipidemia: Plan: Continue ezetimibe (5) Lipoma: Plan: Patient recently had lipoma to right upper back removed by Dr. Menezes. Is scheduled to have sutures removed 01/15/2022 Patient has 8 sutures to right upper back, wound edges appear well approximated without any surrounding erythema or edema or drainage Will need sutures removed-we will remove the stitches DVT Prophylaxis Heparin SQ Full Code as per discussion with pt Follows with Dr Banerjee for routine care Will be discharged home this afternoon Admission and Anticipated Discharge Date Admission Date: January 14, 2022 Subjective 01/15/2022 The patient was seen and examined in medical telemetry unit He continues to have chest pain without any other significant symptoms He is status post unremarkable cardiac cath given history of cardiac stents He will be discharged home this afternoon 01/16/2022 The patient was seen and examined in ICU He has been feeling much better today and denies any symptoms of chest pain and/or throat pain that as he was having before He is being seen by GI and will have possible EGD as an outpatient We will start heart healthy diet and will be discharging home this afternoon Review of Systems Review of Systems: All systems reviewed and are unremarkable except as noted below Cardiovascular: Additional Comments: Denies any more chest and/or throat pain Physical Exam Physical Exam: Lying in bed comfortably Constitutional: well developed, well nourished and + obese; not ill appearing Eyes: PERRL, conjunctivae normal, anicteric sclerae ENMT: external ear and nose normal, oropharynx normal Neck: trachea midline, no thyromegaly Respiratory: no respiratory distress Auscultation: lungs clear to auscultation bilaterally Cardiovascular: Rate/Rhythm: regular rate and regular rhythm; not tachycardic Heart Sounds: normal S1 and normal S2; no murmur Extremities: + edema (Trace edema bilaterally) Gastrointestinal (Abdomen): Inspection/Auscultation: normal bowel sounds; abdomen not distended Percussion/Palpation: abdomen soft; abdomen nontender Musculoskeletal: No acute arthritis in any of the joint Neurologic: Alert, awake and oriented x3. No focal sensory and motor deficit appreciated Results & Data Results & Data ([facility]) Vital Signs (Past 12 Hours) Vital Signs Temp Pulse Pulse Resp BP BP Pulse Ox 01/16/22 08:00 74 18 01/16/22 07:25 80 18 126/71 96 01/16/22 06:45 68 11 L 01/16/22 04:00 36.9 C 67 12 114/60 97 Laboratory Results Short CBC 01/16/22 Range/Units 05:17 WBC 7.13 (4.8-10.8) K/uL Hgb 16.0 (14.0-18.0) g/dL Hct 46.0 (42-52) % Plt Count 163 (130-400) K/uL BMP 01/16/22 05:17 Sodium 136 Potassium 3.9 Chloride 105 Carbon Dioxide 26 BUN 15 Creatinine 0.66 Glucose 90 Calcium 8.3 L Medications Administered Current Inpatient Medications Acetaminophen (Acetaminophen 325 Mg Tab) 650 mg PO Q4H PRN PRN Reason: Pain or Fever Stop: 02/13/22 17:57 Last Admin: 01/15/22 09:26 Dose: 650 mg Documented by: Albuterol (Albuterol Hfa 8 Gm Inhaler) 1 puffs INH Q6H PRN PRN Reason: ASTHMA Stop: 02/13/22 22:49 Ezetimibe (Ezetimibe 10 Mg Tablet) 10 mg PO [facility] Stop: 02/14/22 08:59 Last Admin: 01/16/22 07:23 Dose: 10 mg Documented by: Lisinopril (Lisinopril 5 Mg Tab) 5 mg PO [facility] Stop: 02/14/22 08:59 Last Admin: 01/16/22 07:23 Dose: 5 mg Documented by: Metoprolol Succinate (Metoprolol Succ 50mg Ext Rel Tab) 50 mg PO [facility] Stop: 02/14/22 08:59 Last Admin: 01/16/22 07:23 Dose: 50 mg Documented by: Pantoprazole Sodium (Pantoprazole 40 Mg Tab) 40 mg PO [facility] Stop: 01/19/22 16:14 Last Admin: 01/16/22 07:23 Dose: 40 mg Documented by: Vitamin D (Cholecalciferol 1,000 Units 25 Mcg Tab) 2,000 units PO [facility] Stop: 02/14/22 08:59 Last Admin: 01/16/22 07:24 Dose: 2,000 units Documented by:
--- NOTE | 2022-01-16 14:06 | Cardiology Progress Note ---
Date of Service January 16, 2022 Assessment & Plan (1) Non-cardiac chest pain: (2) CAD (coronary artery disease): (3) HTN (hypertension): (4) Dyslipidemia: (5) GERD (gastroesophageal reflux disease): Plan: Results of cardiac catheterization discussed at length. Patient reassured that underlying CAD appears stable angiographically. His discomfort is not related to coronary artery stenosis. Symptoms improved with treatment of dyspepsia/GERD. He will follow with gastroenterology for EGD. Continue cardiovascular medications as previously prescribed. No changes at this time. Routine cardiology follow-up as scheduled in March. Thank you for allowing to p articipate in the care of your patient. Admission and Anticipated Discharge Date Admission Date: January 14, 2022 Subjective Patient seen and examined the bedside. Cardiac catheterization revealing patent RCA and OM stents otherwise stable CAD. Apical LAD stenosis and diagonal branch vessel stenosis unchanged when compared to prior angiography from 2016. Patient throat and chest discomfort has improved with administration of Maalox and pantoprazole. Overall feeling better today. Denies orthopnea or PND. No dysrhythmias on telemetry. Tolerating medications. Offers no new concerns/complaints. Review of Systems Review of Systems: All systems reviewed & are unremarkable except as noted in Subjective Physical Exam Constitutional: well nourished and + obese; no acute distress and not ill appearing ENMT: Mallampati Class: III Respiratory: no respiratory distress, no labored breathing and no retractions Cardiovascular: RRR, no murmur, no edema Rate/Rhythm: regular rate and regular rhythm Heart Sounds: normal S1 and normal S2; no murmur Vessels: radial pulses present; no JVD and no carotid bruit Extremities: no edema Gastrointestinal (Abdomen): Inspection/Auscultation: abdomen normal to inspection and normal bowel sounds; abdomen not distended Percussion/Palpation: abdomen soft; abdomen nontender, no guarding and abdomen not rigid Neurologic: CN's II-XI intact bilaterally and moves all extremities; no focal motor deficits Motor/Sensory: no tremor Psychiatric: A+Ox3, euthymic affect Results & Data ([facility]) Vital Signs (Past 12 Hours) Vital Signs Temp Pulse Pulse Pulse Resp BP BP 01/16/22 13:20 36.9 C 67 64 18 124/66 01/16/22 08:00 74 18 01/16/22 07:25 80 18 126/71 01/16/22 06:45 68 11 L 01/16/22 04:00 36.9 C 67 12 BP Pulse Ox 01/16/22 13:20 114/60 96 01/16/22 08:00 01/16/22 07:25 96 01/16/22 06:45 01/16/22 04:00 114/60 97
--- NOTE | 2022-01-17 09:38 | Discharge Summary ---
Date of Service January 17, 2022 Admission HPI Per Admitting Provider 66-year-old male with PMH CAD, H/O NSTEMI s/p ELVIE RCA x2 in 2014, ELVIE OM 2016, residual LAD disease managed medically, HTN, dyslipidemia, obesity presented to ER with complaint of chest pain today. Patient states today was sitting in recliner when had onset of chest aching across top of chest and across neck at approx 11:30am today. Took one SL nitro without much relief and took second 15 minutes later with moderate relief. Got up to go to bathroom and felt dizzy. Has had CHERRY since taking nitro. Was feeling better and then approx 1230 developed aching across upper chest again and came to ER. Denies fever/chills, diaphoresis, N/V/D/C, syncope, vision changes, SOB, orthopnea, palpitations, cough, sore throat, choking, otalgia, rhinorrhea, abdominal pain, paresthesias, weakness, extremity weakness, extremity edema, rashes, urinary symptoms. History dobutamine stress test in 2018 was negative for inducible ischemia In ER was having CP and nitro paste was applied and improved however reports intermittent episodes of chest discomfort throughout ER course, however not as intense as prior. Currently patient is chest pain free. Admission Exam Per Admitting Provider Physical Exam: General: no distress, obese Head: normocephalic, atraumatic Eyes: PERRL, EOM's intact, conjunctiva non-injected, anicteric ENT: normal inspection external ears, nose, mucous membranes moist Neck: supple, trachea midline, non-tender Lungs: clear, no respiratory distress, no wheezing/rhonchi/rales CV: RRR, no JVD, no pretibial edema, mild tenderness to palpation left anterior chest, no skin disoloration noted Abd: normal BS, soft, non-tender Ext: no cyanosis, no calf tenderness Neuro: A&O x 3, no focal deficits noted, normal affect Skin: warm, dry Principal Diagnosis Chest pain status post cardiac cath with moderate CAD with patent RCA and OM stent and normal intracardiac pressures, CAD status post ELVIE in RCA x2 in 2014 and ELVIE OM in 2016, dyspepsia, hypertension Discharge Exam Lying in bed comfortably Constitutional well developed, well nourished and + obese; not ill appearing Eyes PERRL, conjunctivae normal, anicteric sclerae ENMT external ear and nose normal, oropharynx normal Neck trachea midline, no thyromegaly Respiratory no respiratory distress Auscultation: lungs clear to auscultation bilaterally Cardiovascular Rate/Rhythm: regular rate and regular rhythm; not tachycardic Heart Sounds: normal S1 and normal S2; no murmur Extremities: + edema (Trace edema bilaterally) Gastrointestinal (Abdomen) Inspection/Auscultation: normal bowel sounds; abdomen not distended Percussion/Palpation: abdomen soft; abdomen nontender Discharge Data Allergies Allergy/AdvReac Type Severity Reaction Status Date / Time No Known Allergies Allergy Verified 01/14/22 15:17 Consultations 01/14/22 15:17 ED Decision to Admit Stat 01/14/22 17:58 Consult Cardiology Routine 01/15/22 09:08 Consult Cardiac Catheterization Stat 01/15/22 15:17 Consult Gastroenterology Routine Procedures Performed Operation Date: 01/15/22 11:00 Actual Procedures p Cath, Left with Cors and Vent - Kvng Fox DO s Cineradiography w/Routine Exam - Kvng Fox DO Ordered Studies 01/15/22 11:18 CL Cath Imgs for PACS use only Routine Hospital Course (1) Chest pain: No ACS any status post cardiac cath as below. Has been complaining of upper central chest/throat pain for some time Concern about dyspepsia/peptic ulcer disease Has been getting reducing dose of steroid for left ankle pain and swelling and is on aspirin Appreciate GI input and recommendation Has been put on PPI and will be discharged home this afternoon He will have GI follow-up and possible EGD as an outpatient (2) CAD (coronary artery disease): 66-year-old male with PMH CAD, H/O NSTEMI s/p ELVIE RCA x2 in 2014, ELVIE OM 2016, residual LAD disease managed medically, HTN, dyslipidemia, obesity present ed to ER with complaint of chest pain today occurred while sitting relieved with 2 SL nitro. History dobutamine stress test in 2018 was negative for inducible ischemia Today In ER was having CP and nitro paste was applied and improved however reports intermittent episodes of chest discomfort throughout ER course, however not as intense as prior. Currently patient is chest pain free. EKG without acute ST elevation. Initial and subsequent troponins were negative Complained of occasional chest pain and required intravenous morphine very small dose Maxi EKG was unremarkable lipid panel-was unremarkable, continue ezetimibe. Patient is not on statin Continue aspirin, metoprolol succinate- Nitropaste continued for ongoing chest pain Appreciate cardiology input and recommendation Status post cardiac cath which showed moderate CAD (patent RCA and OM stent) and normal intracardiac pressures Continue with medical management-no further adjustment of medications Denies any more chest pain and/or palpitation Remains stable and will be sent home this afternoon Recent left ankle pain with some swelling He has been getting tapered dose of steroid We will continue as an outpatient (3) HTN (hypertension): Continue lisinopril, metoprolol succinate (4) Dyslipidemia: Continue ezetimibe (5) Lipoma: Patient recently had lipoma to right upper back removed by Dr. Menezes. Is scheduled to have sutures removed 01/15/2022 Patient has 8 sutures to right upper back, wound edges appear well approximated without any surrounding erythema or edema or drainage Will need sutures removed-we will remove the stitches DVT Prophylaxis Heparin SQ Full Code as per discussion with pt Follows with Dr Banerjee for routine care Will be discharged home this afternoon Total Time Total Time Spent Total Time Spent (In Minutes): 35 minutes Discharge Plan Discharge Items Patient Disposition: Home - Home Health Services Reason For Visit: CP Discharge Diagnosis: Chest pain status post cardiac cath with moderate CAD with patent RCA and OM stent and normal intracardiac pressures, CAD status post ELVIE in RCA x2 in 2014 and ELVIE OM in 2016, dyspepsia, hypertension Condition on Discharge: Good Activity: Resume your previous activity Non-emergency contact: Primary Care Provider Call non-emergency contact if: you have any medication questions and your symptoms worsen Follow-up/Referrals: Alicia Banerjee DO [Primary Care Provider] - (Date & Time 01/19/2022 12:20 PM Provider Niyah Valverde PA-C Department [facility] ) Diet: Heart Healthy Addtl Attending Provider Instructions: No change in your cardiac medications Continue with Protonix as advised and keep GI appointment as an outpatient Please give appointment with your primary care physician and [facility] clinical reimbursement specialist Pending Studies at Discharge: No Stand-Alone Forms: My artaculous, Smoking Cessation Medications and DC Order Prescriptions: New pantoprazole 40 mg Tablet,Delayed Release (Dr/Ec) 40 mg PO QAM 30 Days Qty: 30 RF: 0 Continued (DME) Wheeled Walker Misc See Rx Instructions .ROUTE .MEDSUPPLY Qty: 1 RF: 0 ofloxacin 0.3 % drops 5 drp otic (ear) BID 7 Days Qty: 10 RF: 0 methylprednisolone 4 mg tablets,dose pack See Rx Instructions .Route .COMPLEX Qty: 21 RF: 0 lisinopril 5 mg Tablet 5 mg PO QAM RF: 0 ezetimibe 10 mg Tablet 10 mg PO QAM RF: 0 cholecalciferol (vitamin D3) [Vitamin D3] 50 mcg (2,000 unit) Capsule 2,000 unit PO QAM RF: 0 metoprolol succinate 50 mg Tablet Extended Release 24 Hr 50 mg PO QAM RF: 0 lutein-zeaxanthin 20 mg- 1,000 mcg Capsule 2 cap PO QAM RF: 0 nitroglycerin 0.4 mg Tablet, Sublingual 0.4 mg sublingual DIRECTED PRN (Reason: Chest Pain) RF: 0 albuterol sulfate [ProAir HFA] 90 mcg/actuation Hfa Aerosol Inhaler 1 puff INHALATION Q6H PRN (Reason: ASTHMA) RF: 0 multivitamin Tablet 1 tab PO DAILY RF: 0 Discontinued amoxicillin 500 mg tablet 2,000 mg PO ONCE Qty: 8 RF: 3 Discharge Orders: Discharge Order (Routine); Ordered 01/16/22 Ordered By: Ivory Ramos Admission Data Admit Date/Time: 01/14/22 15:47 Attending Provider: Ivory Ramos Admit Provider: Ivory Ramos Primary Care Provider: Alicia Banerjee Other Providers: Ivory Ramos ; Kvng Fox ; Annabella Calderon ; Janie Leary ; Brandon Hopson ; More Chung ; Carmelo Escalante ; Joanna Majano ; Manjeet Miles ; Chaka Vieyra ; Violet Iniguez ; Veronica Cheng ; Martha Arita ; Chela Barnett ; Rafael Mejia Other Interventions: Discharge Summary Assessment (RN) Last Done: 01/16/22 13:20
== END 2022-01-16 15:24 | disposition home health service (06) ==
LOC: 2N 14:05 → ED 14:05 → 2N 17:33 → 1E 01-15 14:49